=== PATIENT | male | born 1965 | race Caucasian/White ===

== ENCOUNTER 2018-06-18 01:26 | Inpatient (IN) | payer OTHER, SELFPAY ==
[2018-06-18] VITALS (41 sets, daily range): BP systolic 103–162; BP diastolic 58–103; PULSE 47–87; RESP 10–20; TEMP 36.6–36.8; O2SAT 95–99; BMI 24.3; BMI 25.1
--- NOTE | 2018-06-18 01:39 | RAD_ITS ---
STUDY: X-RAY CHEST REASON FOR EXAM: Male, 53 years old. Midsternal chest pain. TECHNIQUE: Single AP portable view of the chest. COMPARISON: None. FINDINGS: The lungs are clear and expanded. There is no demonstrated pleural abnormality. Normal size heart. Normal mediastinum and nino. Normal visualized pulmonary arteries. There is atherosclerotic calcification of the aortic arch with tortuosity. Normal visualized thoracic spine. Normal visualized ribs, clavicles, and shoulders. There is no demonstrated abnormality of the visualized soft tissue structures of the upper abdomen. RAD/Chest 1 View (Portable) IMPRESSION: No evidence for acute cardiopulmonary pathology. Electronically Signed: Daniel Grigsby MD at 1:59 EDT , Service support ,
--- NOTE | 2018-06-18 01:39 | EKG12_ITS ---
Test Reason : CP Blood Pressure : / mmHG Vent. Rate : 061 BPM Atrial Rate : 061 BPM P-R Int : 160 ms QRS Dur : 086 ms QT Int : 396 ms P-R-T Axes : 076 024 042 degrees QTc Int : 398 ms Normal sinus rhythm Cannot rule out Anterior infarct , age undetermined Abnormal ECG Confirmed by AMBAR ORTIZ, ALLYSON ([id number]), department editor CAITLIN PRICE ([id number] on 06/19/2018 11:04:46 AM Referred By: KIMBERLY Confirmed By:ALLYSON VILLALTA MD
[2018-06-18 01:48] LABS: Absolute Neutrophil Count 9.8 X10^3/uL (2.0-7.7); Basophil# 0.06 X10^3/uL; Basophil% 0.5 % (0-1); Eosinophil# 0.18 X10^3/uL; Eosinophils% 1.4 % (0-5); Hematocrit 48.5 % (40-54); Hemoglobin 16.8 g/dl (13.0-16.5); Lymphocyte % 15.8 % (19-41); Mean Corp Hgb Conc 34.6 g/gl (32-36); Mean Corpuscular Hgb 30.8 pg (27.0-32.0); Mean Platelet Vol. 11.6 fl (6.2-12.0); Monocyte# 1.15 X10^3/uL; Monocyte% 8.6 % (0-10); Neutrophil # 9.79 X10^3/uL (2.7-7.7); Neutrophil % 73.5 % (47-70); Platelet Count 206 K/mm3 (150-450); RBC Distribution Width CV 12.9 % (11.6-14.6); RBC Distribution Width SD 42.4 fl (35.1-43.9); Red Blood Count 5.45 M/mm3 (4.6-6.2); White Blood Count 13.3 K/mm3 (4.4-11.0)
[2018-06-18] MEDS: Aspirin 81 MG TAB.CHEW 324 MG PO (01:48)
[2018-06-18] MEDS: Ondansetron 4 MG/2 ML Vial IV (01:50)
[2018-06-18] MEDS: Morphine 4 MG/ML Syringe IV (01:50)
[2018-06-18 01:51] LABS: POSITIVE COUNT NO; POSITIVE DIFFERENTIAL NO; POSITIVE MORPHOLOGY NO
[2018-06-18 01:57] LABS: D-Dimer Quantitative (DVT/PE) 0.32 FEU/ug/m (0.27-0.49)
[2018-06-18 02:22] LABS: Anion Gap 6 (5-15); BUN 9 mg/dL (7-18); BUN/Creat Ratio 9.2 RATIO (10-20); Calcium,Total 8.6 mg/dL (8.5-10.1); Chloride 105 mmol/L (98-107); Creatinine, Serum 0.98 mg/dL (0.70-1.30); EST Glomerular Filtration Rate 84 mL/min (>60); Est Glom Filt Rate - Afr Amer 102 mL/min (>60); Estimated Creatinine Clearance 94.58 ml/min; Glucose 122 mg/dL (74-106); Potassium 4.3 mmol/L (3.5-5.1); Sodium Level 138 mmol/L (136-145)
--- NOTE | 2018-06-18 02:36 | ED.DCSUM_ITS ---
- ER Visit Summary Date of Service: 06/18/18 Chief Complaint: Chest pain chest pain History of Present Illness: The patient is a 53 M presenting with chest pain. Pain is sharp and midsternal with no radiation. He states it started around 6 PM, 7 hours ago. He states pain is 10 out of 10. He denies shortness of breath, nausea, vomiting, diaphoresis. He does not recall anything that makes this better or worse. He does not see a doctor regularly and does not know if he has high blood pressure or high cholesterol. His father had an [place] at age 44. He is a smoker. Denies PE/DVT risk factors. Physical Examination: Vitals are stable. Patient is afebrile. Alert no acute distress. HEENT exam is unremarkable. Neck is supple. Lungs are clear and equal bilaterally. Heart is regular rate and rhythm. Abdomen is soft nontender nondistended. Extremities are unremarkable. Skin is warm and dry. No focal neurologic deficit. Remainder of exam is unremarkable. Emergency Department Course and Treatment: EKG is sinus rate of 61. Chest x-ray shows no acute process. CBC, chemistries show a white count 13.3, glucose 122. D-dimer is negative. Troponin is 3.130. Patient was given aspirin on arrival. He is given morphine and Zofran. Repeat EKG was obtained and is unchanged. Patient's pain is 2/10. He was given sublingual nitro. He is pain free on re- evaluation. Discussed with Dr. Reeder who also reviewed his EKGs. He will b e admitted for cardiac catheterization and given Brilinta and heparin. Discussed with the hospitalist for admission. Disposition: Admission Impression: NSTEMI This note was generated with [employer] dictation software. It may contain incorrect words, spelling, and punctuation that were not noted in review of the chart prior to signing ED Disposition - Plan for ED Patient: Chief Complaint: Chest Pain Referrals: Care Physician,No Primary [Primary Care Provider] -
[2018-06-18] MEDS: TICAGRELOR 90 MG TABLET 180 MG PO (03:28)
[2018-06-18] MEDS: HEPARIN/D5w 25,000 UNITS 25,000 UNITS/250 ML IV.SOLN. 12 UNITS IV (03:29)
[2018-06-18] MEDS: Heparin Injection (Vial) 5,000 UNIT/ML VIAL 6000 UNIT IV (03:29)
[2018-06-18 03:35] LABS: Prothrombin Time (Protime)PT. 13.5 SECONDS (11.7-14.9)
--- NOTE | 2018-06-18 03:55 | PCM.HP.STD ---
Problem List (1) Non-ST elevation KS (NSTEMI) Status: Acute History of Present Illness Date of Admission: 06/18/18 Chief Complaint: Chest pain The patient is a 53 year old previously healthy male M with a history of tobacco abuse and nephrectomy who presented with excruciating constant and persistent substernal nonradiating chest pain that started a few hours before his admission. Associated with symptoms is lightheadedness. He reported that his chest pain decreased with walking. He denies any aggravating factors. He denied any shortness of breath, nausea, vomiting or diaphoresis. Past Medical History Past Medical History (Chronic Problems): Chronic Problems HTN (hypertension) (Chronic) Allergies No Known Allergies Allergy (Verified 06/18/18 01:29) Home Medications: Ambulatory Orders Medication Instructions Recorded NK 06/18/18 Surgical History: - - Nephrectomy as a child. He does not know whether it is left kidney or his right kidney. Smoking Status: Current every day smoker Tobacco Use: Cigarettes Alcohol: None Review of Systems Constitutional: Denies: Chills, Fever, Weight Change HEENT: Denies: Head Aches, Sinus Congestion, Sinus Drainage Cardiovascular: Reports: Chest Pain. Denies: Palpitations Respiratory: Denies: Cough, Shortness of breath at rest, Sputum production Gastrointestinal: Denies: Abdominal Pain, Nausea, Vomiting Genitourinary: Denies: Dysuria Musculoskeletal: Denies: Joint Pain, Joint Tenderness Skin: Denies: Rash, Wounds Neurological: Denies: Numbness, Tingling, Focal weakness Psychiatric: Denies: Anxiety, Depression, Homicidal Ideations, Suicidal Ideations Hematologic/ Lymphatic: Denies: Easy Bruising, Easy Bleeding VTE Information - Inpt Only VTE Present on Admission: No VTE Mechan Device Prophylaxis: None VTE Pharm Prophylaxis ordered?: No Reason prophylaxis not ordered:: Treatment Not Indicated - Patient started on heparin for non-ST elevation KS Patient Problems: Active and Suspected Problems Non-ST elevation KS (NSTEMI) (Acute) - Physical Exam General: Alert, Oriented x3, Cooperative HEENT: Atraumatic, PERRLA, EOMI, Normocephalic Neck: Supple, No JVD, Negative Carotid Bruits Lungs: Clear to auscultation, Normal air movement Cardiovascular: Regular rate, No murmurs Abdomen: Bowel Sounds Present, Soft, Non Tender Extremities: No edema, Capillary Refill Less than 3 Seconds Skin: No rashes, No breakdown Musculoskeletal: No Tenderness to Palpation of Joints or Extremities Neurological: Cranial nerves II-XII grossly intact Psych/Mental Status: Normal Affect, Appropriate Vital Signs Temp Pulse Resp BP Pulse Ox 98.2 F 87 18 128/89 H 96 06/18/18 01:27 06/18/18 03:35 06/18/18 03:35 06/18/18 03:35 06/18/18 03:35 Oxygen Flow Rate (L/min) 2 Oxygen Delivery Method Nasal Cannula Weight: 81.4 kg Body Mass Index (BMI) 24.3 Laboratory Tests Past 24 Hrs 06/18/18 06/18/18 06/18/18 01:40 01:40 01:40 WBC 13.3 H RBC 5.45 Hgb 16.8 H Hct 48.5 MCV 89.0 MCH 30.8 MCHC 34.6 RDW 12.9 RDW Differential 42.4 Plt Count 206 MPV 11.6 Immature Gran % (Auto) 0.200 Neut % (Auto) 73.5 H Lymph % (Auto) 15.8 L [place] % (Auto) 8.6 Eos % (Auto) 1.4 Baso % (Auto) 0.5 Absolute Neuts (auto) 9.8 H Absolute Lymphs (auto) 2.10 Total Counted Not Reportable PT INR D-Dimer Quant (PE/DVT) 0.32 Sodium 138 Potassium 4.3 Chloride 105 Carbon Dioxide 27.0 Anion Gap 6 BUN 9 Creatinine 0.98 Estim Creat Clear Calc 94.58 Est GFR (MDRD) Af Amer 102 Est GFR (MDRD) Non-Af 84 BUN/Creatinine Ratio 9.2 L Glucose 122 H Calcium 8.6 Troponin I 3.130 H* 06/18/18 01:40 WBC RBC Hgb Hct MCV MCH MCHC RDW RDW Differential Plt Count MPV Immature Gran % (Auto) Neut % (Auto) Lymph % (Auto) [place] % (Auto) Eos % (Auto) Baso % (Auto) Absolute Neuts (auto) Absolute Lymphs (auto) Total Counted PT 13.5 INR 1.0 D-Dimer Quant (PE/DVT) Sodium Potassium Chloride Carbon Dioxide Anion Gap BUN Creatinine Estim Creat Clear Calc Est GFR (MDRD) Af Amer Est GFR (MDRD) Non-Af BUN/Creatinine Ratio Glucose Calcium Troponin I Assessment/Plan All Active Problems Non-ST elevation KS (NSTEMI) (Acute) The patient is a 53 year old previously healthy male M with a history of tobacco abuse and nephrectomy who presented with excruciating constant and persistent substernal nonradiating chest pain; lightheadedness and found to have abnormal EKG ; and severely elevated troponin consistent with non-ST elevation KS. Chest pain Admit to a monitored bed on PCU CXR independently reviewed confirms hyperinflation with no acute cardia pulmonary disease. EKG independently reviewed confirms Q waves in the inferior leads and PVCs. Patient received aspirin 324 mg at the ED ASA 81 mg p.o. daily SL NTG 0.4 mg prn as needed for chest pain Serial cardiac enzymes Stat EKG as needed for chest pain Per cardiology recommendations patient was started on heparin drip from the ED and was given Brilinta. Cardiology consulted. We will keep patient n.p.o. Tobacco abuse Counseled Nicotine patch. Inpatient consult smoking cessation. DVT prophylaxis Not indicated in the setting of patient on heparin drip for non-ST elevation KS. Code Visit Inpatient E&M: 57244 Init Hosp L3
--- NOTE | 2018-06-18 04:57 | EKG12_ITS ---
Test Reason : CP REPEAT Blood Pressure : / mmHG Vent. Rate : 083 BPM Atrial Rate : 071 BPM P-R Int : 000 ms QRS Dur : 076 ms QT Int : 358 ms P-R-T Axes : 000 010 033 degrees QTc Int : 420 ms Normal sinus rhythm with Premature atrial complexes Fusion complexes Possible Inferior infarct , age undetermined Abnormal ECG When compared with ECG of 18-JUN-2018 02:37, MANUAL COMPARISON REQUIRED, DATA IS UNCONFIRMED Confirmed by VOLODYMYR ENNIS ([id number]), fashion editor TODD RAND ([id number]) on 06/26/2018 12:43:37 PM Referred By: HERNAN Confirmed By:VOLODYMYR ENNIS
[2018-06-18] MEDS: Atorvastatin Calcium 80 MG Tablet PO (06:30)
[2018-06-18 06:50] LABS: Absolute Lymphocyte Count 3.74 X10^3/ul (0.83-4.51); Absolute Neutrophil Count 10.2 X10^3/uL (2.0-7.7); Basophil# 0.05 X10^3/uL; Basophil% 0.3 % (0-1); Eosinophil# 0.22 X10^3/uL; Eosinophils% 1.4 % (0-5); Hematocrit 49.6 % (40-54); Hemoglobin 16.7 g/dl (13.0-16.5); Lymphocyte # 3.74 X10^3/ul (4.0); Lymphocyte % 24.2 % (19-41); Mean Corp Hgb Conc 33.7 g/gl (32-36); Mean Corpuscular Hgb 30.4 pg (27.0-32.0); Mean Corpuscular Volume 90.2 fL (80-94); Mean Platelet Vol. 12.1 fl (6.2-12.0); Monocyte# 1.18 X10^3/uL; Monocyte% 7.6 % (0-10); Neutrophil # 10.21 X10^3/uL (2.7-7.7); Neutrophil % 66.2 % (47-70); Platelet Count 225 K/mm3 (150-450); RBC Distribution Width SD 42.8 fl (35.1-43.9); White Blood Count 15.4 K/mm3 (4.4-11.0)
[2018-06-18 06:56] LABS: International Normalized Ratio 1.2; Prothrombin Time (Protime)PT. 14.9 SECONDS (11.7-14.9)
[2018-06-18 07:07] LABS: POSITIVE COUNT NO; POSITIVE DIFFERENTIAL NO; POSITIVE MORPHOLOGY NO
--- NOTE | 2018-06-18 07:12 | PCM.CONS.C ---
Problem List (1) Non-ST elevation PR (NSTEMI) Status: Acute (2) HTN (hypertension) Status: Chronic Reason for Consult Date of Consultation: 06/18/18 History of Present Illness: The patient is a 53 year old white male with a past medical history potentially compatible with hypertension who presents for evaluation of chest discomfort compatible with unstable angina pectoris and subsequent objective findings compatible with an acute non-ST segment elevation PR. The patient states the best of his knowledge she has had no cardiovascular history in the past. He notes that yesterday evening he began to experience nonexertional chest discomfort which he described as a somewhat pressure sensation throughout his chest. It did not radiate. He denied nausea, emesis, or diaphoresis. There was no episodes of worsening shortness of breath or dyspnea, near syncope, or syncope. His symptoms waxed and waned. He subsequently presented to the [facility] emergency department for evaluation. He was noted to have an abnormal troponin I level. His ECG demonstrated concerns of sinus rhythm with a possible anterior PR pattern of indeterminate age and a possible inferior PR pattern of indeterminate age. It was repeated with notation of subsequent T wave changes/inversion in the inferior leads. He was treated medically with aspirin and antiplatelet agents and anticoagulants. He was placed in the PCU for further evaluation and care. He states that the moment he is without ongoing chest discomfort. He has had repeat troponin I levels which have increased. He is noted on follow-up ECG to have continued sinus rhythm with findings potentially compatible with an accelerated idioventricular rhythm. His chest x-ray did not appear to demonstrate any acute cardiovascular disease process. Past Medical History Allergies/Adverse Reactions: Allergies No Known Allergies Allergy (Verified 06/18/18 05:03) Home Medications: Ambulatory Orders Medication Instructions Recorded NK 06/18/18 Past Medical History (Chronic Problems): Chronic Problems HTN (hypertension) (Chronic) Surgical History: - - Nephrectomy as a child. He does not know whether it is left kidney or his right kidney. Lives: Alone Smoking Status: Current every day smoker Tobacco Use: Cigarettes Alcohol: None Drugs: None Review of Systems - Review of Systems General: Denies: Fever, Night Sweats, Fatigue Cardiovascular: Reports: Chest Discomfort, Chest Discomfort at Rest. Denies: Shortness of Breath, Orthopnea, PND, Peripheral Edema, Palpitations, Lightheadedness, Dizziness, Near Syncope, Syncope Respiratory: Denies: Cough, Sputum Production, Hemoptysis Gastrointestinal: Denies: Hematemesis, Hematochezia, Melena Genitourinary: Denies: Dysuria, Hematuria Skin: Denies: Rash Subjectve: This is a 53-year-old white male who appears to be resting comfortably at the moment in no acute distress. Objective: Vital Signs Temp Pulse Resp BP Pulse Ox 98.0 F 68 18 106/81 H 99 06/18/18 05:20 06/18/18 07:01 06/18/18 05:20 06/18/18 05:20 06/18/18 05:20 Oxygen Flow Rate (L/min) 2 Oxygen Delivery Method Nasal Cannula Weight: 175 lb 0.752 oz Body Mass Index (BMI) 25.1 Intake and Output for Last 24 Hours 06/16/18 06/17/18 06/18/18 23:59 23:59 23:59 Intake Total 34 / 34 Output Total 175 / 175 Balance -141 / -141 General: Awake, Alert, Oriented x 3, Cooperative, No Acute Distress HEENT: Atraumatic, Normocephalic, PERRL, EOMI, Sclera Non Icteric Oral: Moist Mucosa Neck: Supple, Good ROM Lungs: Clear to auscultation Cardiovascular: Regular Rhythm, Premature Ectopic Beats, Normal S1, Normal S2 Vascular: No Carotid Bruits Abdomen: Bowel Sounds Present, Soft, Non Tender Extremities: No Cyanosis, No Clubbing, No edema Neurological: No Focal Motor or Sensory Deficit Psych/Mental Status: Appropriate, Normal Affect 06/18/18 01:40: WBC 13.3 H, RBC 5.45, Hgb 16.8 H, Hct 48.5, MCV 89.0, MCH 30.8, MCHC 34.6, RDW 12.9, RDW Differential 42.4, Plt Count 206, MPV 11.6, Immature Gran % (Auto) 0.200, Neut % (Auto) 73.5 H, Lymph % (Auto) 15.8 L, [place] % (Auto) 8.6, Eos % (Auto) 1.4, Baso % (Auto) 0.5, Absolute Neuts (auto) 9.8 H, Total Counted Not Reportable 06/18/18 01:40: Sodium 138, Potassium 4.3, Chloride 105, Carbon Dioxide 27.0, Anion Gap 6, BUN 9, Creatinine 0.98, Est GFR (MDRD) Af Amer 102, Est GFR (MDRD) Non-Af 84, BUN/Creatinine Ratio 9.2 L, Glucose 122 H, Calcium 8.6, Troponin I 3.130 H* 06/18/18 01:40: D-Dimer Quant (PE/DVT) 0.32 06/18/18 01:40: PT 13.5, INR 1.0 06/18/18 01:40: APTT 32.0 06/18/18 05:20: PT 14.9, INR 1.2 06/18/18 05:20: WBC 15.4 H, RBC 5.50, Hgb 16.7 H, Hct 49.6, MCV 90.2, MCH 30.4, MCHC 33.7, RDW 13.0, RDW Differential 42.8, Plt Count 225, MPV 12.1 H, Immature Gran % (Auto) 0.300, Neut % (Auto) 66.2, Lymph % (Auto) 24.2, [place] % (Auto) 7.6, Eos % (Auto) 1.4, Baso % (Auto) 0.3, Absolute Neuts (auto) 10.2 H, Total Counted Not Reportable Rhythm: Sinus rhythm EKG: As noted above Chest x-ray: Preliminary report: No acute cardiopulmonary disease process: Please see official report Assessment/Plan 1. Non-ST segment elevation PR The patient presents with signs and symptoms compatible with a non-ST segment elevation PR. He appears to be symptomatically improved at the moment status post medical management with antiplatelet therapy and anticoagulant therapy. At the present time he continues to be monitored. His cardiac enzymes are being followed. His ECG will be followed. It would not be unreasonable to obtain an echocardiogram to evaluate his left ventricular wall motion and systolic function. He is also being recommended for further evaluation with diagnostic cardiac catheterization. The procedure and risks were discussed with him. He was agreeable to this approach. 2. Hypertension The patient may have a history of hypertension-untreated. His blood pressures will need to be followed. He will be treated medically as deemed appropriate. Comment: The above was discussed and reviewed with the patient and previously with the [facility] emergency department staff. This note was generated with [employer] software. It may contain incorrect words, spelling, and punctuation that were not noted in checking the note before signing.
--- NOTE | 2018-06-18 07:18 | CON.PCM_ITS ---
Problem List (1) Non-ST elevation IL (NSTEMI) Status: Acute (2) HTN (hypertension) Status: Chronic Reason for Consult Date of Consultation: 06/18/18 History of Present Illness: The patient is a 53 year old white male with a past medical history potentially compatible with hypertension who presents for evaluation of chest discomfort compatible with unstable angina pectoris and subsequent objective findings com patible with an acute non-ST segment elevation IL. The patient states the best of his knowledge she has had no cardiovascular history in the past. He notes that yesterday evening he began to experience nonexertional chest discomfort which he described as a somewhat pressure sensation throughout his chest. It did not radiate. He denied nausea, emesis, or diaphoresis. There was no episodes of worsening shortness of breath or dyspnea, near syncope, or syncope. His symptoms waxed and waned. He subsequently presented to the [facility] emergency department for evaluation. He was noted to have an abnormal troponin I level. His ECG demonstrated concerns of sinus rhythm with a possible anterior IL pattern of indeterminate age and a possible inferior IL pattern of indeterminate age. It was repeated with notation of subsequent T wave changes/inversion in the inferior leads. He was treated medically with aspirin and antiplatelet agents and anticoagulants. He was placed in the PCU for further evaluation and care. He states that the moment he is without ongoing chest discomfort. He has had repeat troponin I levels which have increased. He is noted on follow-up ECG to have continued sinus rhythm with findings potentially compatible with an accelerated idioventricular rhythm. His chest x-ray did not appear to demonstrate any acute cardiovascular disease process. Past Medical History Allergies/Adverse Reactions: Allergies No Known Allergies Allergy (Verified 06/18/18 05:03) Home Medications: Ambulatory Orders Medication Instructions Recorded NK 06/18/18 Past Medical History (Chronic Problems): Chronic Problems HTN (hypertension) (Chronic) Surgical History: - - Nephrectomy as a child. He does not know whether it is left kidney or his right kidney. Lives: Alone Smoking Status: Current every day smoker Tobacco Use: Cigarettes Alcohol: None Drugs: None Review of Systems - Review of Systems General: Denies: Fever, Night Sweats, Fatigue Cardiovascular: Reports: Chest Discomfort, Chest Discomfort at Rest. Denies: Shortness of Breath, Orthopnea, PND, Peripheral Edema, Palpitations, Lightheadedness, Dizziness, Near Syncope, Syncope Respiratory: Denies: Cough, Sputum Production, Hemoptysis Gastrointestinal: Denies: Hematemesis, Hematochezia, Melena Genitourinary: Denies: Dysuria, Hematuria Skin: Denies: Rash Subjectve: This is a 53-year-old white male who appears to be resting comfortably at the moment in no acute distress. Objective: Vital Signs Temp Pulse Resp BP Pulse Ox 98.0 F 68 18 106/81 H 99 06/18/18 05:20 06/18/18 07:01 06/18/18 05:20 06/18/18 05:20 06/18/18 05:20 Oxygen Flow Rate (L/min) 2 Oxygen Delivery Method Nasal Cannula Weight: 175 lb 0.752 oz Body Mass Index (BMI) 25.1 Intake and Output for Last 24 Hours 06/16/18 06/17/18 06/18/18 23:59 23:59 23:59 Intake Total 34 / 34 Output Total 175 / 175 Balance -141 / -141 General: Awake, Alert, Oriented x 3, Cooperative, No Acute Distress HEENT: Atraumatic, Normocephalic, PERRL, EOMI, Sclera Non Icteric Oral: Moist Mucosa Neck: Supple, Good ROM Lungs: Clear to auscultation Cardiovascular: Regular Rhythm, Premature Ectopic Beats, Normal S1, Normal S2 Vascular: No Carotid Bruits Abdomen: Bowel Sounds Present, Soft, Non Tender Extremities: No Cyanosis, No Clubbing, No edema Neurological: No Focal Motor or Sensory Deficit Psych/Mental Status: Appropriate, Normal Affect 06/18/18 01:40: WBC 13.3 H, RBC 5.45, Hgb 16.8 H, Hct 48.5, MCV 89.0, MCH 30.8, MCHC 34.6, RDW 12.9, RDW Differential 42.4, Plt Count 206, MPV 11.6, Immature Gran % (Auto) 0.200, Neut % (Auto) 73.5 H, Lymph % (Auto) 15.8 L, [place] % (Auto) 8.6, Eos % (Auto) 1.4, Baso % (Auto) 0.5, Absolute Neuts (auto) 9.8 H, Total Counted Not Reportable 06/18/18 01:40: Sodium 138, Potassium 4.3, Chloride 105, Carbon Dioxide 27.0, Anion Gap 6, BUN 9, Creatinine 0.98, Est GFR (MDRD) Af Amer 102, Est GFR (MDRD) Non-Af 84, BUN/Creatinine Ratio 9.2 L, Glucose 122 H, Calcium 8.6, Troponin I 3.130 H* 06/18/18 01:40: D-Dimer Quant (PE/DVT) 0.32 06/18/18 01:40: PT 13.5, INR 1.0 06/18/18 01:40: APTT 32.0 06/18/18 05:20: PT 14.9, INR 1.2 06/18/18 05:20: WBC 15.4 H, RBC 5.50, Hgb 16.7 H, Hct 49.6, MCV 90.2, MCH 30.4, MCHC 33.7, RDW 13.0, RDW Differential 42.8, Plt Count 225, MPV 12.1 H, Immature Gran % (Auto) 0.300, Neut % (Auto) 66.2, Lymph % (Auto) 24.2, [place] % (Auto) 7.6, Eos % (Auto) 1.4, Baso % (Auto) 0.3, Absolute Neuts (auto) 10.2 H, Total Counted Not Reportable Rhythm: Sinus rhythm EKG: As noted above Chest x-ray: Preliminary report: No acute cardiopulmonary disease process: Please see official report Assessment/Plan 1. Non-ST segment elevation IL The patient presents with signs and symptoms compatible with a non-ST segment elevation IL. He appears to be symptomatically improved at the moment status post medical management with antiplatelet therapy and anticoagulant therapy. At the present time he continues to be monitored. His cardiac enzymes are being followed. His ECG will be followed. It would not be unreasonable to obtain an echocardiogram to evaluate his left ventricular wall motion and systolic function. He is also being recommended for further evaluation with diagnostic cardiac catheterization. The procedure and risks were discussed with him. He was agreeable to this approach. 2. Hypertension The patient may have a history of hypertension-untreated. His blood pressures will need to be followed. He will be treated medically as deemed appropriate. Comment: The above was discussed and reviewed with the patient and previously with the [facility] emergency department staff. This note was generated with [employer] software. It may contain incorrect words, spelling, and punctuation that were not noted in checking the note before signing.
--- NOTE | 2018-06-18 07:25 | ECHOD_ITS ---
Reason For Study: S/P OH Procedure This was a 2D Doppler, Color Flow transthoracic echocardiogram. The exam was of adequate technical quality. Exam performed portable in patient room. Left Ventricle Normal LV size. Segmental dysfunction with preserved ejection fraction (see wall motion). The estimated ejection fraction is 55 %. No evidence for diastolic dysfunction. Basal inferoseptal: Hypokinetic. Mid-Posterior: Hypokinetic. Mid-Inferior: Hypokinetic. Mid-inferoseptal : Hypokinetic. Inferior Somers : Hypokinetic. Right Ventricle Normal RV size. Normal systolic function. Atria Normal left atrium. Normal right atrium. No doppler evidence for ASD. Mitral Valve There is no mitral annular calcification. Normal mitral valve. Mild (1+) mitral valve insufficiency. Tricuspid Valve Normal tricuspid valve. Mild tricuspid valve insufficiency. Right ventricular systolic pressure estimated to be 23 mmHg. Aortic Valve Trisinus/trileaflet aortic valve. Normal aortic valve. Trivial aortic valve insufficiency. Pulmonic Valve The pulmonic valve is not well visualized. Trivial pulmonic valve insufficiency. Great Vessels Normal sized aortic root. Pericardium/Pleural No pericardial effusion. MMode/2D Measurements & Calculations LVIDd: 4.6 cm IVSd: 0.80 cm Ao root diam: 3.5 cm LVIDs: 2.6 cm LVPWd: 1.0 cm LA dimension: 3.1 cm RVDd: 3.6 cm FS: 44.2 % LAV(MOD-bp): 19.5 ml LVAd ap4: 35.1 cm2 SV(MOD-sp4): 76.6 ml LAV(MOD-bp) Indexed: 9.9 ml/m2 EDV(MOD-sp4): 110.4 ml LAV(MOD-sp2): 19.4 ml EDV(sp4-el): 112.8 ml LAV(MOD-sp4): 16.3 ml LVAs ap4: 17.4 cm2 ESV(MOD-sp4): 33.8 ml ESV(sp4-el): 33.6 ml EF(MOD-sp4): 69.4 % EF(sp4-el): 70.2 % SV(sp4-el): 79.2 ml LA A4 area: 8.4 cm2 RA A4 area: 15.3 cm2 Time Measurements MV dec time: 0.18 sec Doppler Measurements & Calculations MV E max henrry: 93.2 cm/sec Lat Peak E' Henrry: 10.4 cm/sec Med Peak E' Henrry: 11.4 cm/sec MV A max henrry: 88.5 cm/sec E/E' lat: 9.0 E/E' med: 8.2 MV E/A: 1.1 MV V2 max: 99.2 cm/sec MV P1/2t max henrry: 102.1 cm/sec Ao V2 max: 123.1 cm/sec MV max P.9 mmHg MV P1/2t: 116.0 msec Ao max P.1 mmHg MV V2 mean: 57.9 cm/sec MV dec slope: 257.7 cm/sec2 Ao V2 mean: 84.6 cm/sec MV mean P.6 mmHg MVA(P1/2t): 1.9 cm2 Ao mean P.2 mmHg MV V2 VTI: 32.0 cm Ao V2 VTI: 25.9 cm LV V1 max: 107.9 cm/sec PA V2 max: 81.9 cm/sec TR max henrry: 222.9 cm/sec LV V1 max P.7 mmHg TR max P.9 mmHg LV V1 mean P.3 mmHg LV V1 mean: 70.9 cm/sec LV V1 VTI: 23.1 cm Interpretation Summary Segmental dysfunction with preserved ejection fraction (see wall motion). The estimated ejection fraction is 55 %. Mild (1+) mitral valve insufficiency. Mild tricuspid valve insufficiency. Trivial aortic valve insufficiency. Trivial pulmonic valve insufficiency. Right ventricular systolic pressure estimated to be 23 mmHg. No evidence for diastolic dysfunction. Ordering Physician: Ralph Reeder Referring Physician: NO PCP NOTED Performed By: Branden Palafox RCS
[2018-06-18] MEDS: TICAGRELOR 90 MG TABLET PO ×2 (08:43→21:36)
--- NOTE | 2018-06-18 08:53 | CASEMGMT ---
According to the [employer] website, the following are in-network tertiary facilities: [facility], [facility], [facility], [facility], [facility], [facility], and . Nany ALVARENGA CM
[2018-06-18 08:59] LABS: Anion Gap 7 (5-15); BUN 8 mg/dL (7-18); BUN/Creat Ratio 9.2 RATIO (10-20); Calcium,Total 8.6 mg/dL (8.5-10.1); Chloride 107 mmol/L (98-107); Cholesterol 148 mg/dL (200); Creatinine, Serum 0.87 mg/dL (0.70-1.30); EST Glomerular Filtration Rate 98 mL/min (>60); Est Glom Filt Rate - Afr Amer 118 mL/min (>60); Estimated Creatinine Clearance 100.22 ml/min; Glucose 88 mg/dL (74-106); High Density Lipoprotein 38 mg/dL; Potassium 4.1 mmol/L (3.5-5.1); Sodium Level 140 mmol/L (136-145); Triglycerides 95 mg/dL; Very Low Density Lipoprotein 19 mg/dL (5-40)
--- NOTE | 2018-06-18 10:29 | NURSING ---
called report to Gregoria LEATHER PRODUCTION MACHINE OPERATOR. Pt to go to ICU post PCI
--- NOTE | 2018-06-18 10:34 | CL.I_ITS ---
Patient Name: HENRY ESCOBEDO Study Date: 06/18/2018 Performing: Robin Minaya MD Ht: 70.07 inches 178 cm : 1965 Wt: 174.17 lbs 79 kg Age: 53 Gender: male BSA: 1.97 PROCEDURE(S) PERFORMED QN05-XCT W OR WO PTCA, SINGLE CORONARY ARTERY CLINICAL PROFILE AND CO-MORBIDITIES Indications: ACS <= 24 hrs, Worsening Angina, Suspected CAD, Cardiac Arrythmia, LV Dysfunction Heart Failure: NYHA Class: 1, Newly Diagnosed: Yes, Heart Failure Type: Systolic Stress/Imaging Stress/Image Study Performed: No Angina Classification Anginal Classification w/in 2 Weeks: CCS IV CAD Presentations: Non-STEMI. Symptom onset Date/Time: 06/18/2018 Time Not Available Comorbidities/Risk Factors: Hypertension Dyslipidemia CONCLUSIONS Successful PTCA/DEB mid PDA with a 2.25 x 12 Promus Synergy, 85%-->0%, no dissection. RECOMMENDATIONS Highly recommend quitting all tobacco products Follow up with primary processes chemical design engineer Risk factor modification ASA Indefinitley Plavix for at least 12 months Routine post interventional care Refer for Outpatient Cardiac Rehab Manual sheath removal per protocol Follow up with Dr. Reeder Manual sheath removal once ACT<170, pt too thin for Mynx. DESCRIPTION OF PROCEDURE The patient arrived to the procedure lab. The risks and benefits of the procedure as well as a full d escription of our services here and current unavailability of surgical backup were fully explained to the patient and/or their significant other prior to the catheterization. The Timeout was completed, verifying the correct patient and procedure. The patient's procedural site was prepped and draped in the usual fashion. Local anesthetic was given subcutaneously to right groin region with Lidocaine 2% Using a modified Seldinger technique,arterial access was obtained via the right femoral artery, a 4Fr sheath was inserted Left Coronary Artery selective angiography was performed in multiple views using a 4 Fr. JL5 catheter. Left Coronary Artery selective angiography was performed in multiple views usi ng a 4 Fr. AL 1 catheter. Right Coronary Artery selective angiography was then performed in multiple views using a 4 Fr. 3DRC catheter. Left Ventriculography was performed in KAY projection using a 4 Fr . Pigtail catheter. LV to AO pullback pressures were then recorded.The images were reviewed and optio ns discussed. A decision was then made to proceed with an Intervention, IVUS or other adjunct procedu re. Arterial sheath was exchanged for a 6 Fr Sheath. HSII Guide catheter was inserted and engaged into th e RCA. BMW Guide wire was advanced to the Right PDA. Emerge 2.00x8 Balloon catheter was inserted. PTC A balloon inflated at 6 atms for 8 secs. PTCA balloon inflated at 8 atms for 10 secs. Angiogram perfo rmed post balloon dilatation. Synergy 2.25x12 Balloon catheter was inserted. Angiogram performed post stent deployment. The arterial sheath was sutured in place and capped INTERVENTION INFORMATION LESION SITE: RT PDA (Mid) Lesion Complexity: Non-High/Non-C, lesion at bifurcation: No, thrombus present: No, culprit lesion: Y es Pre Stenosis: 85 % Pre intervention ELVIRA flow: 3 PROCEDURE: Drug Eluting Stent with pre dilatation. Post Stenosis: 0 % Post intervention ELVIRA flow: 3 COMPLICATIONS No Complications PROCEDURE MEDICATIONS Versed 1 mg IV Oxygen: 2 L/min via nasal cannula Heparin 6000 unit(s) IV 06/18/2018 10:09:25 Nitro 200 mcg IC 06/18/2018 10:10:30 Nitro 200 mcg IC 06/18/2018 10:10:30 IV Bolus: .9 NaCl 400 ml total 06/18/2018 10:07:31 IV Fluids: .9 NaCl IV started @ 100 ml/hr 06/18/2018 10:04:10 SUMMARY OF HEMODYNAMIC DATA Time AIR REST ECG 09:16:35 ECG 09:22:09 ECG 09:22:29 AO 86/72 (80) SA 09:36:09 LV 129/-1, 23 09:52:58 LV 128/-2, 19 09:53:05 LV 126/4, 22 09:54:09 LVp 130/4, 20 09:54:41 AOp 130/71 (96) 09:54:46 AO 130/71 (95) 09:56:35 Signed By Robin Minaya MD On 06/18/2018 10:33:29 Robin Minaya MD
[2018-06-18 10:36] LABS: ACT Activated Clotting Time 224 sec (74-137)
--- NOTE | 2018-06-18 10:43 | EKG12_ITS ---
Test Reason : REPEAT Blood Pressure : / mmHG Vent. Rate : 052 BPM Atrial Rate : 052 BPM P-R Int : 164 ms QRS Dur : 092 ms QT Int : 422 ms P-R-T Axes : 070 003 031 degrees QTc Int : 392 ms Sinus bradycardia Possible Inferior infarct , age undetermined Cannot rule out Anterior infarct , age undetermined Abnormal ECG Reconfirmed by AMBAR ORTIZ, ALLYSON ([id number]), photographic editor CAITLIN PRICE ([id number]) on 06/19/2018 11:05:55 AM Referred By: KIMBERLY Confirmed By:ALLYSON VILLALTA MD
[2018-06-18] MEDS: 0.9% Normal Saline 1,000 ML 150 ML IV (11:08)
--- NOTE | 2018-06-18 13:02 | CASEMGMT ---
RN CM Assesmment- intro role of CM to patient. Pt is alert, and able to participate in RN CM assessment. Presented to ER with NSTEMI, for heart cath with PCI. Pt states he is independent, drives, no dc needs. -Brilinta savings card given and explained to patient. PCP: none. List of PCP's given to pt. Specialists: will f/u with cardiology on dc. Preferred [facility]acy[facility] [place] Insurance: [employer] Prescription Benefit:? Yes Transportation: drives DME/HHC: none ? Plan: DC Home.
[2018-06-18 13:05] LABS: ACT Activated Clotting Time 142 sec (74-137)
--- NOTE | 2018-06-18 13:25 | PCM.PROGNOTE ---
<Fermin Thomas - Last Filed: 06/18/18 13:25> Patient Problems: Active and Suspected Problems Non-ST elevation [place] (NSTEMI) (Acute) Subjective: Pt seen and examined post cath/stent. Had mid PDA stent placed this AM with Dr. Minaya. Currently no complaints - no CP/tightness/heaviness/palp/SOB/LH/nausea. - Physical Exam General: Alert, Oriented x3, Cooperative HEENT: Atraumatic, PERRLA, EOMI, Normocephalic Neck: Supple, No JVD, Negative Carotid Bruits Lungs: Clear to auscultation, Normal air movement Cardiovascular: Regular rate, No murmurs Abdomen: Bowel Sounds Present, Soft, Non Tender Extremities: No edema, Capillary Refill Less than 3 Seconds Skin: No rashes, No breakdown Musculoskeletal: No Tenderness to Palpation of Joints or Extremities Neurological: Cranial nerves II-XII grossly intact Psych/Mental Status: Normal Affect, Appropriate, Alert and oriented to time, place, person, mood and affect Vital Signs Temp Pulse Resp BP Pulse Ox 98.0 F 51 L 10 L 109/82 H 98 06/18/18 12:00 06/18/18 12:30 06/18/18 12:30 06/18/18 12:30 06/18/18 12:30 Oxygen Flow Rate (L/min) 2 Oxygen Delivery Method Room Air Weight: 175 lb 0.752 oz Body Mass Index (BMI) 25.1 Intake and Output for Last 24 Hours 06/16/18 06/17/18 06/18/18 23:59 23:59 23:59 Intake Total 153 / 153 Output Total 350 / 350 Balance -197 / -197 Laboratory Tests Past 24 Hrs 06/18/18 06/18/18 06/18/18 01:40 01:40 01:40 WBC 13.3 H RBC 5.45 Hgb 16.8 H Hct 48.5 MCV 89.0 MCH 30.8 MCHC 34.6 RDW 12.9 RDW Differential 42.4 Plt Count 206 MPV 11.6 Immature Gran % (Auto) 0.200 Neut % (Auto) 73.5 H Lymph % (Auto) 15.8 L [place] % (Auto) 8.6 Eos % (Auto) 1.4 Baso % (Auto) 0.5 Absolute Neuts (auto) 9.8 H Absolute Lymphs (auto) 2.10 Total Counted Not Reportable PT INR APTT Activated Clotting Time D-Dimer Quant (PE/DVT) 0.32 Sodium 138 Potassium 4.3 Chloride 105 Carbon Dioxide 27.0 Anion Gap 6 BUN 9 Creatinine 0.98 Estim Creat Clear Calc 94.58 Est GFR (MDRD) Af Amer 102 Est GFR (MDRD) Non-Af 84 BUN/Creatinine Ratio 9.2 L Glucose 122 H Calcium 8.6 Troponin I 3.130 H* Triglycerides Cholesterol LDL Cholesterol VLDL Cholesterol HDL Cholesterol 06/18/18 06/18/18 06/18/18 01:40 01:40 05:20 WBC RBC Hgb Hct MCV MCH MCHC RDW RDW Differential Plt Count MPV Immature Gran % (Auto) Neut % (Auto) Lymph % (Auto) [place] % (Auto) Eos % (Auto) Baso % (Auto) Absolute Neuts (auto) Absolute Lymphs (auto) Total Counted PT 13.5 INR 1.0 APTT 32.0 Activated Clotting Time D-Dimer Quant (PE/DVT) Sodium Potassium Chloride Carbon Dioxide Anion Gap BUN Creatinine Estim Creat Clear Calc Est GFR (MDRD) Af Amer Est GFR (MDRD) Non-Af BUN/Creatinine Ratio Glucose Calcium Troponin I 13.500 H* Triglycerides Cholesterol LDL Cholesterol VLDL Cholesterol HDL Cholesterol 06/18/18 06/18/18 06/18/18 05:20 05:20 05:20 WBC 15.4 H RBC 5.50 Hgb 16.7 H Hct 49.6 MCV 90.2 MCH 30.4 MCHC 33.7 RDW 13.0 RDW Differential 42.8 Plt Count 225 MPV 12.1 H Immature Gran % (Auto) 0.300 Neut % (Auto) 66.2 Lymph % (Auto) 24.2 [place] % (Auto) 7.6 Eos % (Auto) 1.4 Baso % (Auto) 0.3 Absolute Neuts (auto) 10.2 H Absolute Lymphs (auto) 3.74 Total Counted Not Reportable PT 14.9 INR 1.2 APTT Pending Activated Clotting Time D-Dimer Quant (PE/DVT) Sodium Potassium Chloride Carbon Dioxide Anion Gap BUN Creatinine Estim Creat Clear Calc Est GFR (MDRD) Af Amer Est GFR (MDRD) Non-Af BUN/Creatinine Ratio Glucose Calcium Troponin I Triglycerides Cholesterol LDL Cholesterol VLDL Cholesterol HDL Cholesterol 06/18/18 06/18/18 06/18/18 08:05 10:23 12:53 WBC RBC Hgb Hct MCV MCH MCHC RDW RDW Differential Plt Count MPV Immature Gran % (Auto) Neut % (Auto) Lymph % (Auto) [place] % (Auto) Eos % (Auto) Baso % (Auto) Absolute Neuts (auto) Absolute Lymphs (auto) Total Counted PT INR APTT Activated Clotting Time 224 H 142 H D-Dimer Quant (PE/DVT) Sodium 140 Potassium 4.1 Chloride 107 Carbon Dioxide 26.0 Anion Gap 7 BUN 8 Creatinine 0.87 Estim Creat Clear Calc 100.22 Est GFR (MDRD) Af Amer 118 Est GFR (MDRD) Non-Af 98 BUN/Creatinine Ratio 9.2 L Glucose 88 Calcium 8.6 Troponin I 20.600 H* Triglycerides 95 Cholesterol 148 LDL Cholesterol 91 VLDL Cholesterol 19 HDL Cholesterol 38 L Medical Necessity - Tobacco Use Smoking Status: Current every day smoker Tobacco Use: Cigarettes Assessment/Plan All Active Problems Non-ST elevation [place] (NSTEMI) (Acute) 1. NSTEMI/CAD - s/p 1 stent. aspirin, statin, lopressor, brilinta, fannie-i. Asymptomatic post cath. EF 55%, segmental dysfunction, RVSP 23 on echo. 2. Nicotine abuse - patch DVT ppx: held for cath DC planning: likely home tomorrow. This patient was seen by Fermin Thomas PA-C under the supervision of Dr. Noe <Rupert Noe F - Last Filed: 06/18/18 16:23> - Physical Exam Vital Signs Temp Pulse Resp BP Pulse Ox 98.0 F 51 L 11 L 118/77 97 06/18/18 12:00 06/18/18 15:30 06/18/18 15:30 06/18/18 15:30 06/18/18 15:30 Oxygen Flow Rate (L/min) 2 Oxygen Delivery Method Room Air Weight: 175 lb 0.752 oz Body Mass Index (BMI) 25.1 Intake and Output for Last 24 Hours 06/16/18 06/17/18 06/18/18 23:59 23:59 23:59 Intake Total 153 / 153 Output Total 350 / 350 Balance -197 / -197 Laboratory Tests Past 24 Hrs 06/18/18 06/18/18 06/18/18 01:40 01:40 01:40 WBC 13.3 H RBC 5.45 Hgb 16.8 H Hct 48.5 MCV 89.0 MCH 30.8 MCHC 34.6 RDW 12.9 RDW Differential 42.4 Plt Count 206 MPV 11.6 Immature Gran % (Auto) 0.200 Neut % (Auto) 73.5 H Lymph % (Auto) 15.8 L [place] % (Auto) 8.6 Eos % (Auto) 1.4 Baso % (Auto) 0.5 Absolute Neuts (auto) 9.8 H Absolute Lymphs (auto) 2.10 Total Counted Not Reportable PT INR APTT Activated Clotting Time D-Dimer Quant (PE/DVT) 0.32 Sodium 138 Potassium 4.3 Chloride 105 Carbon Dioxide 27.0 Anion Gap 6 BUN 9 Creatinine 0.98 Estim Creat Clear Calc 94.58 Est GFR (MDRD) Af Amer 102 Est GFR (MDRD) Non-Af 84 BUN/Creatinine Ratio 9.2 L Glucose 122 H Calcium 8.6 Troponin I 3.130 H* Triglycerides Cholesterol LDL Cholesterol VLDL Cholesterol HDL Cholesterol 06/18/18 06/18/18 06/18/18 01:40 01:40 05:20 WBC RBC Hgb Hct MCV MCH MCHC RDW RDW Differential Plt Count MPV Immature Gran % (Auto) Neut % (Auto) Lymph % (Auto) [place] % (Auto) Eos % (Auto) Baso % (Auto) Absolute Neuts (auto) Absolute Lymphs (auto) Total Counted PT 13.5 INR 1.0 APTT 32.0 Activated Clotting Time D-Dimer Quant (PE/DVT) Sodium Potassium Chloride Carbon Dioxide Anion Gap BUN Creatinine Estim Creat Clear Calc Est GFR (MDRD) Af Amer Est GFR (MDRD) Non-Af BUN/Creatinine Ratio Glucose Calcium Troponin I 13.500 H* Triglycerides Cholesterol LDL Cholesterol VLDL Cholesterol HDL Cholesterol 06/18/18 06/18/18 06/18/18 05:20 05:20 08:05 WBC 15.4 H RBC 5.50 Hgb 16.7 H Hct 49.6 MCV 90.2 MCH 30.4 MCHC 33.7 RDW 13.0 RDW Differential 42.8 Plt Count 225 MPV 12.1 H Immature Gran % (Auto) 0.300 Neut % (Auto) 66.2 Lymph % (Auto) 24.2 [place] % (Auto) 7.6 Eos % (Auto) 1.4 Baso % (Auto) 0.3 Absolute Neuts (auto) 10.2 H Absolute Lymphs (auto) 3.74 Total Counted Not Reportable PT 14.9 INR 1.2 APTT Activated Clotting Time D-Dimer Quant (PE/DVT) Sodium 140 Potassium 4.1 Chloride 107 Carbon Dioxide 26.0 Anion Gap 7 BUN 8 Creatinine 0.87 Estim Creat Clear Calc 100.22 Est GFR (MDRD) Af Amer 118 Est GFR (MDRD) Non-Af 98 BUN/Creatinine Ratio 9.2 L Glucose 88 Calcium 8.6 Troponin I 20.600 H* Triglycerides 95 Cholesterol 148 LDL Cholesterol 91 VLDL Cholesterol 19 HDL Cholesterol 38 L 06/18/18 06/18/18 06/18/18 09:29 10:23 12:53 WBC RBC Hgb Hct MCV MCH MCHC RDW RDW Differential Plt Count MPV Immature Gran % (Auto) Neut % (Auto) Lymph % (Auto) [place] % (Auto) Eos % (Auto) Baso % (Auto) Absolute Neuts (auto) Absolute Lymphs (auto) Total Counted PT INR APTT Cancelled Activated Clotting Time 224 H 142 H D-Dimer Quant (PE/DVT) Sodium Potassium Chloride Carbon Dioxide Anion Gap BUN Creatinine Estim Creat Clear Calc Est GFR (MDRD) Af Amer Est GFR (MDRD) Non-Af BUN/Creatinine Ratio Glucose Calcium Troponin I Triglycerides Cholesterol LDL Cholesterol VLDL Cholesterol HDL Cholesterol Code Visit Addendum: Dr. Noe I personally examined the patient and reviewed the chart. I agree with the above. 53-year-old male with past medical history consistent consistent with hypertension presenting with chest pain. On admission patient was found to have a climbing troponin with a peak of 20.6, and EKG changes with T wave inversions in the inferior leads. He was taken for cath and had a stent placed and was transferred to the CVICU. If stable tomorrow we will plan for discharge on dual antiplatelet therapy for 1 year. Inpatient E&M: 62683 Subs Hosp L2
--- NOTE | 2018-06-18 13:31 | PN_ITS ---
<Fermin Thomas - Last Filed: 06/18/18 13:25> Patient Problems: Active and Suspected Problems Non-ST elevation NC (NSTEMI) (Acute) Subjective: Pt seen and examined post cath/stent. Had mid PDA stent placed this AM with Dr. Minaya. Currently no complaints - no CP/tightness/heaviness/palp/SOB/LH/nausea. - Physical Exam General: Alert, Oriented x3, Cooperative HEENT: Atraumatic, PERRLA, EOMI, Normocephalic Neck: Supple, No JVD, Negative Carotid Bruits Lungs: Clear to auscultation, Normal air movement Cardiovascular: Regular rate, No murmurs Abdomen: Bowel Sounds Present, Soft, Non Tender Extremities: No edema, Capillary Refill Less than 3 Seconds Skin: No rashes, No breakdown Musculoskeletal: No Tenderness to Palpation of Joints or Extremities Neurological: Cranial nerves II-XII grossly intact Psych/Mental Status: Normal Affect, Appropriate, Alert and oriented to time, place, person, mood and affect Vital Signs Temp Pulse Resp BP Pulse Ox 98.0 F 51 L 10 L 109/82 H 98 06/18/18 12:00 06/18/18 12:30 06/18/18 12:30 06/18/18 12:30 06/18/18 12:30 Oxygen Flow Rate (L/min) 2 Oxygen Delivery Method Room Air Weight: 175 lb 0.752 oz Body Mass Index (BMI) 25.1 Intake and Output for Last 24 Hours 06/16/18 06/17/18 06/18/18 23:59 23:59 23:59 Intake Total 153 / 153 Output Total 350 / 350 Balance -197 / -197 Laboratory Tests Past 24 Hrs 06/18/18 06/18/18 06/18/18 01:40 01:40 01:40 WBC 13.3 H RBC 5.45 Hgb 16.8 H Hct 48.5 MCV 89.0 MCH 30.8 MCHC 34.6 RDW 12.9 RDW Differential 42.4 Plt Count 206 MPV 11.6 Immature Gran % (Auto) 0.200 Neut % (Auto) 73.5 H Lymph % (Auto) 15.8 L Hardin % (Auto) 8.6 Eos % (Auto) 1.4 Baso % (Auto) 0.5 Absolute Neuts (auto) 9.8 H Absolute Lymphs (auto) 2.10 Total Counted Not Reportable PT INR APTT Activated Clotting Time D-Dimer Quant (PE/DVT) 0.32 Sodium 138 Potassium 4.3 Chloride 105 Carbon Dioxide 27.0 Anion Gap 6 BUN 9 Creatinine 0.98 Estim Creat Clear Calc 94.58 Est GFR (MDRD) Af Amer 102 Est GFR (MDRD) Non-Af 84 BUN/Creatinine Ratio 9.2 L Glucose 122 H Calcium 8.6 Troponin I 3.130 H* Triglycerides Cholesterol LDL Cholesterol VLDL Cholesterol HDL Cholesterol 06/18/18 06/18/18 06/18/18 01:40 01:40 05:20 WBC RBC Hgb Hct MCV MCH MCHC RDW RDW Differential Plt Count MPV Immature Gran % (Auto) Neut % (Auto) Lymph % (Auto) Hardin % (Auto) Eos % (Auto) Baso % (Auto) Absolute Neuts (auto) Absolute Lymphs (auto) Total Counted PT 13.5 INR 1.0 APTT 32.0 Activated Clotting Time D-Dimer Quant (PE/DVT) Sodium Potassium Chloride Carbon Dioxide Anion Gap BUN Creatinine Estim Creat Clear Calc Est GFR (MDRD) Af Amer Est GFR (MDRD) Non-Af BUN/Creatinine Ratio Glucose Calcium Troponin I 13.500 H* Triglycerides Cholesterol LDL Cholesterol VLDL Cholesterol HDL Cholesterol 06/18/18 06/18/18 06/18/18 05:20 05:20 05:20 WBC 15.4 H RBC 5.50 Hgb 16.7 H Hct 49.6 MCV 90.2 MCH 30.4 MCHC 33.7 RDW 13.0 RDW Differential 42.8 Plt Count 225 MPV 12.1 H Immature Gran % (Auto) 0.300 Neut % (Auto) 66.2 Lymph % (Auto) 24.2 Hardin % (Auto) 7.6 Eos % (Auto) 1.4 Baso % (Auto) 0.3 Absolute Neuts (auto) 10.2 H Absolute Lymphs (auto) 3.74 Total Counted Not Reportable PT 14.9 INR 1.2 APTT Pending Activated Clotting Time D-Dimer Quant (PE/DVT) Sodium Potassium Chloride Carbon Dioxide Anion Gap BUN Creatinine Estim Creat Clear Calc Est GFR (MDRD) Af Amer Est GFR (MDRD) Non-Af BUN/Creatinine Ratio Glucose Calcium Troponin I Triglycerides Cholesterol LDL Cholesterol VLDL Cholesterol HDL Cholesterol 06/18/18 06/18/18 06/18/18 08:05 10:23 12:53 WBC RBC Hgb Hct MCV MCH MCHC RDW RDW Differential Plt Count MPV Immature Gran % (Auto) Neut % (Auto) Lymph % (Auto) Hardin % (Auto) Eos % (Auto) Baso % (Auto) Absolute Neuts (auto) Absolute Lymphs (auto) Total Counted PT INR APTT Activated Clotting Time 224 H 142 H D-Dimer Quant (PE/DVT) Sodium 140 Potassium 4.1 Chloride 107 Carbon Dioxide 26.0 Anion Gap 7 BUN 8 Creatinine 0.87 Estim Creat Clear Calc 100.22 Est GFR (MDRD) Af Amer 118 Est GFR (MDRD) Non-Af 98 BUN/Creatinine Ratio 9.2 L Glucose 88 Calcium 8.6 Troponin I 20.600 H* Triglycerides 95 Cholesterol 148 LDL Cholesterol 91 VLDL Cholesterol 19 HDL Cholesterol 38 L Medical Necessity - Tobacco Use Smoking Status: Current every day smoker Tobacco Use: Cigarettes Assessment/Plan All Active Problems Non-ST elevation NC (NSTEMI) (Acute) 1. NSTEMI/CAD - s/p 1 stent. aspirin, statin, lopressor, brilinta, fannie-i. Asymptomatic post cath. EF 55%, segmental dysfunction, RVSP 23 on echo. 2. Nicotine abuse - patch DVT ppx: held for cath DC planning: likely home tomorrow. This patient was seen by Fermin Thomas PA-C under the supervision of Dr. oNe <Rupert Noe F - Last Filed: 06/18/18 16:23> - Physical Exam Vital Signs Temp Pulse Resp BP Pulse Ox 98.0 F 51 L 11 L 118/77 97 06/18/18 12:00 06/18/18 15:30 06/18/18 15:30 06/18/18 15:30 06/18/18 15:30 Oxygen Flow Rate (L/min) 2 Oxygen Delivery Method Room Air Weight: 175 lb 0.752 oz Body Mass Index (BMI) 25.1 Intake and Output for Last 24 Hours 06/16/18 06/17/18 06/18/18 23:59 23:59 23:59 Intake Total 153 / 153 Output Total 350 / 350 Balance -197 / -197 Laboratory Tests Past 24 Hrs 06/18/18 06/18/18 06/18/18 01:40 01:40 01:40 WBC 13.3 H RBC 5.45 Hgb 16.8 H Hct 48.5 MCV 89.0 MCH 30.8 MCHC 34.6 RDW 12.9 RDW Differential 42.4 Plt Count 206 MPV 11.6 Immature Gran % (Auto) 0.200 Neut % (Auto) 73.5 H Lymph % (Auto) 15.8 L Hardin % (Auto) 8.6 Eos % (Auto) 1.4 Baso % (Auto) 0.5 Absolute Neuts (auto) 9.8 H Absolute Lymphs (auto) 2.10 Total Counted Not Reportable PT INR APTT Activated Clotting Time D-Dimer Quant (PE/DVT) 0.32 Sodium 138 Potassium 4.3 Chloride 105 Carbon Dioxide 27.0 Anion Gap 6 BUN 9 Creatinine 0.98 Estim Creat Clear Calc 94.58 Est GFR (MDRD) Af Amer 102 Est GFR (MDRD) Non-Af 84 BUN/Creatinine Ratio 9.2 L Glucose 122 H Calcium 8.6 Troponin I 3.130 H* Triglycerides Cholesterol LDL Cholesterol VLDL Cholesterol HDL Cholesterol 06/18/18 06/18/18 06/18/18 01:40 01:40 05:20 WBC RBC Hgb Hct MCV MCH MCHC RDW RDW Differential Plt Count MPV Immature Gran % (Auto) Neut % (Auto) Lymph % (Auto) Hardin % (Auto) Eos % (Auto) Baso % (Auto) Absolute Neuts (auto) Absolute Lymphs (auto) Total Counted PT 13.5 INR 1.0 APTT 32.0 Activated Clotting Time D-Dimer Quant (PE/DVT) Sodium Potassium Chloride Carbon Dioxide Anion Gap BUN Creatinine Estim Creat Clear Calc Est GFR (MDRD) Af Amer Est GFR (MDRD) Non-Af BUN/Creatinine Ratio Glucose Calcium Troponin I 13.500 H* Triglycerides Cholesterol LDL Cholesterol VLDL Cholesterol HDL Cholesterol 06/18/18 06/18/18 06/18/18 05:20 05:20 08:05 WBC 15.4 H RBC 5.50 Hgb 16.7 H Hct 49.6 MCV 90.2 MCH 30.4 MCHC 33.7 RDW 13.0 RDW Differential 42.8 Plt Count 225 MPV 12.1 H Immature Gran % (Auto) 0.300 Neut % (Auto) 66.2 Lymph % (Auto) 24.2 Hardin % (Auto) 7.6 Eos % (Auto) 1.4 Baso % (Auto) 0.3 Absolute Neuts (auto) 10.2 H Absolute Lymphs (auto) 3.74 Total Counted Not Reportable PT 14.9 INR 1.2 APTT Activated Clotting Time D-Dimer Quant (PE/DVT) Sodium 140 Potassium 4.1 Chloride 107 Carbon Dioxide 26.0 Anion Gap 7 BUN 8 Creatinine 0.87 Estim Creat Clear Calc 100.22 Est GFR (MDRD) Af Amer 118 Est GFR (MDRD) Non-Af 98 BUN/Creatinine Ratio 9.2 L Glucose 88 Calcium 8.6 Troponin I 20.600 H* Triglycerides 95 Cholesterol 148 LDL Cholesterol 91 VLDL Cholesterol 19 HDL Cholesterol 38 L 06/18/18 06/18/18 06/18/18 09:29 10:23 12:53 WBC RBC Hgb Hct MCV MCH MCHC RDW RDW Differential Plt Count MPV Immature Gran % (Auto) Neut % (Auto) Lymph % (Auto) Hardin % (Auto) Eos % (Auto) Baso % (Auto) Absolute Neuts (auto) Absolute Lymphs (auto) Total Counted PT INR APTT Cancelled Activated Clotting Time 224 H 142 H D-Dimer Quant (PE/DVT) Sodium Potassium Chloride Carbon Dioxide Anion Gap BUN Creatinine Estim Creat Clear Calc Est GFR (MDRD) Af Amer Est GFR (MDRD) Non-Af BUN/Creatinine Ratio Glucose Calcium Troponin I Triglycerides Cholesterol LDL Cholesterol VLDL Cholesterol HDL Cholesterol Code Visit Addendum: Dr. Noe I personally examined the patient and reviewed the chart. I agree with the above. 53-year-old male with past medical history consistent consistent with hypertension presenting with chest pain. On admission patient was found to have a climbing troponin with a peak of 20.6, and EKG changes with T wave inversions in the inferior leads. He was taken for cath and had a stent placed and was transferred to the CVICU. If stable tomorrow we will plan for discharge on dual antiplatelet therapy for 1 year. Inpatient E&M: 64087 Subs Hosp L2
--- NOTE | 2018-06-18 14:52 | CRPHASE1 ---
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 Risk Factors/Lifestyle Smoking Status: Current some day smoker Hx Hypertension: Yes Hx Diabetes Mellitus Type 1: No Hx Diabetes Mellitus Type 2: No Hx Metabolic Disorders: Yes Hx Dyslipidemia: Yes Hx Obesity: No Height: 5 ft 10 in - BMI 25.1 Stress: Home/Family Risk Factor for Sedentary Lifestyle: Moderate Risk Laboratory Values: Cardiac Rehab Phase I Labs Triglycerides 95 mg/dL (-199) 06/18/18 08:05 Cholesterol 148 mg/dL (200) 06/18/18 08:05 LDL Cholesterol 91 mg/dL (0-130) 06/18/18 08:05 HDL Cholesterol 38 mg/dL (40-) L 06/18/18 08:05 Phase I Education Given On:: [place], Antiplatelet medication, Smoking cessation Issues Affecting Care:: None Knowledge of Condition:: Yes Learning Preferences: Verbal, Written Hospital Course Presenting Symptoms:: NSTEMI Medical/Surgical History AL:: Yes - NSTEMI CAD:: No Diabetes:: No Hypertension:: Yes Dyslipidemia:: Yes Discharge/Home/Social Eval Discharge Disposition: Home
--- NOTE | 2018-06-18 14:54 | CRPH1.INSTRU ---
General Education CAD and cardiac anatomy and function:: Patient communicates acknowledgment Explanation of diagnoses and procedures:: Patient communicates acknowledgment Sign/Symptoms of MS:: Patient communicates acknowledgment Antiplatelet therapy: Patient communicates acknowledgment Proper use of NTG-SL: Not instructed Emergency procedures and activation of EMS: Patient communicates acknowledgment Compliance of all prescribed medications: Patient communicates acknowledgment Smoking Patient Nicotine/Smoking Risk Factors Are:: Cigarettes Recommendations Include:: Smoking cessation strategies/Smoking packet, Participation in a smoking cessation program, Previous smoker; encourage continued cessation Nicotine/Smoking Response Code:: Patient communicates acknowledgment Dyslipidemia Patient Dyslipidemia Risk Factors Are:: HDL, LDL Recommendations Include:: Lipid profile provided, Reviewed NCEP/ATP guidelines, Therapeutic Lifestyle Change dietary guidelines Dyslipidemia Response Code:: Patient communicates acknowledgment Overweight/Obesity Patient Overweight/Obesity Risk Factors Are:: BMI Normal [18-25 & < 65 years old] Recommendations Include:: Exercise 5-7 times/week Overweight/Obesity:: Patient communicates acknowledgment Hypertension Recommendations Include:: Maintain BP <130/85, DASH dietary guidelines, Decrease/maintain normal body weight, Moderation of ETOH Hypertension:: Patient communicates acknowledgment Diabetes Patient Diabetes Risk Factors Are:: No documented hx of diabetes Metabolic Syndrome Patient Metabolic Syndrome Risk Factors Are [3 of 5]:: Fasting blood sugar > 100 mg/dL, Hypertension, Low HDL <40 [male] or < 50 [female] Recommendations Include:: Reinforce compliance to risk factor modifications, Encouraged follow-up with Primary Care Physician Metabolic Syndrome Response Code:: Patient communicates acknowledgment Sedentary Patient Sedentary Risk Factors Are:: Lack of regular exercise Recommendations Include:: Aerobic exercise 5-7 times/week for 20-30 minutes continuously, Benefits of regular exercise, Discussed home walking program, Monitored Outpatient Cardiac Rehab Sedentary Response Code:: Patient communicates acknowledgment Stress Recommendations Include:: Identification of stressors, and assessment of coping skills, Stress management techniques Stress Response Code:: Patient communicates acknowledgment
--- NOTE | 2018-06-18 16:53 | CL.D_ITS ---
Patient Name: HENRY ESCOBEDO Study Date: 06/18/2018 Performing: Ralph Reeder MD Ht: 70 inches 178 cm : 1965 Wt: 174.4 lbs 79 kg Age: 53 Gender: male BSA: 1.97 PROCEDURE(S) PERFORMED [id number]/COR/LV NH23-GSS W OR WO PTCA, SINGLE CORONARY ARTERY CLINICAL PROFILE AND INDICATIONS Indications: ACS <= 24 hrs, Worsening Angina, Suspected CAD, Cardiac Arrythmia, LV Dysfunction, A CS <= 24 hrs, Cardiac Arrythmia Heart Failure: NYHA Class: 1, Newly Diagnosed: Yes, Heart Failure Type: Systolic Stress/Imaging Stress/Image Study Performed: No Stress/Image Study Performed: No Angina Classification Anginal Classification w/in 2 Weeks: CCS IV CAD Presentations: Non-STEMI. Symptom onset Date/Time: 06/18/2018 Time Not Available Non-STEMI. Comorbidities/Risk Factors: Hypertension Dyslipidemia CONCLUSIONS Elevated Left Ventricular End Diastolic Pressure Segmented LV systolic dysfunction- Mild LVEF: by LV gram 55 % [place] Multivessel CAD (predominantly RPDA) RECOMMENDATIONS Risk factor modification Medical therapy Referred for immediate PCI DESCRIPTION OF PROCEDURE The patient arrived to the procedure lab. The risks and benefits of the procedure as well as a full d escription of our services here and current unavailability of surgical backup were fully explained to the patient and/or their significant other prior to the catheterization. The Timeout was completed, verifying the correct patient and procedure. The patient's procedural site was prepped and draped in the usual fashion. Local anesthetic was given subcutaneously to right groin region with Lidocaine 2%. Using a modified Seldinger technique, arterial access was obtained via the right femoral artery, a 4 Fr sheath was inserted Left Coronary Artery selective angiography was performed in multiple views us ing a 4 Fr. JL5 catheter. Left Coronary Artery selective angiography was performed in multiple views using a 4 Fr. AL 1 catheter. Right Coronary Artery selective angiography was then performed in multip le views using a 4 Fr. 3DRC catheter. Left Ventriculography was performed in KAY projection using a 4 Fr. Pigtail catheter. LV to AO pullback pressures were then recorded.The arterial sheath was sutured in place and capped CORONARY ANGIOGRAPHY DOMINANCE: Right Dominant LEFT HEART ASSESSMENT Left Ventricular Ejection Fraction: by LV Gram 55 % Inferior Mid Hypokinesis Elevated Left Ventricular End Diastolic Pressure LVEDP: 19 mmHg LEFT MAIN: Angiographically normal LEFT ANTERIOR DECENDING ARTERY: Mild luminal irregularities CIRCUMFLEX ARTERY: Mild luminal irregularities RAMUS: Mild luminal irregularities RIGHT CORONARY ARTERY: Mild luminal irregularities RT PDA: Mid - 99 % Stenosis VALVE FINDINGS: Normal Aortic Valve function Normal Mitral Valve function AORTIC ROOT: Angiographically normal COMPLICATIONS No Complications PROCEDURE MEDICATIONS Versed 1 mg IV Oxygen: 2 L/min via nasal cannula Heparin 6000 unit(s) IV 06/18/2018 10:09:25 Nitro 200 mcg IC 06/18/2018 10:10:30 Nitro 200 mcg IC 06/18/2018 10:10:30 IV Bolus: .9 NaCl 400 ml total 06/18/2018 10:07:31 IV Fluids: .9 NaCl IV started @ 100 ml/hr 06/18/2018 10:04:10 SUMMARY OF HEMODYNAMIC DATA Time AIR REST ECG 09:16:35 ECG 09:22:09 ECG 09:22:29 AO 86/72 (80) SA 09:36:09 LV 129/-1, 23 09:52:58 LV 128/-2, 19 09:53:05 LV 126/4, 22 09:54:09 LVp 130/4, 20 09:54:41 AOp 130/71 (96) 09:54:46 AO 130/71 (95) 09:56:35 Signed By Ralph Reeder MD On 06/18/2018 16:53:09 Ralph Reeder MD
--- NOTE | 2018-06-18 18:21 | PCM.PN.CARD ---
Subjectve: The patient underwent diagnostic cardiac catheterization earlier this day. This led to a right PDA PCI. He appears to be resting comfortably at this time. Objective: Vital Signs Temp Pulse Resp BP Pulse Ox 98.0 F 55 L 16 131/83 H 96 06/18/18 12:00 06/18/18 18:00 06/18/18 18:00 06/18/18 18:00 06/18/18 18:00 Oxygen Flow Rate (L/min) 2 Oxygen Delivery Method Room Air Weight: 175 lb 0.752 oz Body Mass Index (BMI) 25.1 Intake and Output for Last 24 Hours 06/16/18 06/17/18 06/18/18 23:59 23:59 23:59 Intake Total 153 / 153 Output Total 350 / 350 Balance -197 / -197 General: Awake, Alert, Oriented x 3, Cooperative, No Acute Distress HEENT: Atraumatic, Normocephalic, PERRL, EOMI, Sclera Non Icteric Oral: Moist Mucosa Neck: Supple, Good ROM, No JVD Lungs: Clear to auscultation Cardiovascular: Regular Rhythm, Premature Ectopic Beats, Normal S1, Normal S2 Vascular: Normal Femoral Pulses Abdomen: Bowel Sounds Present, Soft, Non Tender Extremities: No Cyanosis, No Clubbing, No edema Neurological: No Focal Motor or Sensory Deficit 06/18/18 01:40: WBC 13.3 H, RBC 5.45, Hgb 16.8 H, Hct 48.5, MCV 89.0, MCH 30.8, MCHC 34.6, RDW 12.9, RDW Differential 42.4, Plt Count 206, MPV 11.6, Immature Gran % (Auto) 0.200, Neut % (Auto) 73.5 H, Lymph % (Auto) 15.8 L, Long % (Auto) 8.6, Eos % (Auto) 1.4, Baso % (Auto) 0.5, Absolute Neuts (auto) 9.8 H, Total Counted Not Reportable 06/18/18 01:40: Sodium 138, Potassium 4.3, Chloride 105, Carbon Dioxide 27.0, Anion Gap 6, BUN 9, Creatinine 0.98, Est GFR (MDRD) Af Amer 102, Est GFR (MDRD) Non-Af 84, BUN/Creatinine Ratio 9.2 L, Glucose 122 H, Calcium 8.6, Troponin I 3.130 H* 06/18/18 01:40: D-Dimer Quant (PE/DVT) 0.32 06/18/18 01:40: PT 13.5, INR 1.0 06/18/18 01:40: APTT 32.0 06/18/18 05:20: Troponin I 13.500 H* 06/18/18 05:20: PT 14.9, INR 1.2 06/18/18 05:20: WBC 15.4 H, RBC 5.50, Hgb 16.7 H, Hct 49.6, MCV 90.2, MCH 30.4, MCHC 33.7, RDW 13.0, RDW Differential 42.8, Plt Count 225, MPV 12.1 H, Immature Gran % (Auto) 0.300, Neut % (Auto) 66.2, Lymph % (Auto) 24.2, Long % (Auto) 7.6, Eos % (Auto) 1.4, Baso % (Auto) 0.3, Absolute Neuts (auto) 10.2 H, Total Counted Not Reportable 06/18/18 08:05: Sodium 140, Potassium 4.1, Chloride 107, Carbon Dioxide 26.0, Anion Gap 7, BUN 8, Creatinine 0.87, Est GFR (MDRD) Af Amer 118, Est GFR (MDRD) Non-Af 98, BUN/Creatinine Ratio 9.2 L, Glucose 88, Calcium 8.6, Troponin I 20.600 H*, Triglycerides 95, Cholesterol 148, LDL Cholesterol 91, VLDL Cholesterol 19, HDL Cholesterol 38 L 06/18/18 09:29: APTT Cancelled Rhythm: Sinus rhythm; PVCs; an episode of nonsustained wide complex tachycardia compatible with nonsustained VT EKG: Sinus rhythm; inferior NE of indeterminate age cannot be excluded ECHO: Please see official report Cardiac Cath: Please see official report PCI: Please see official report Medical Necessity - Tobacco Use Smoking Status: Current some day smoker Tobacco Use: Cigarettes Assessment/Plan 1. Non-ST segment elevation NE The patient presents with signs and symptoms compatible with a non-ST segment elevation NE. He appears to be symptomatically improved at the moment status post medical management and PCI. At the present time he continues to be monitored. His cardiac enzymes are being followed. His ECG will be followed. 2. CAD The patient has been diagnosed with CAD. He underwent right PDA PCI. He will continue medical management and follow-up. 3. Nonsustained wide complex tachycardia/nonsustained VT The patient has had an episode status post his PCI. He was without hemodynamic compromise. This episode may represent a reperfusion arrhythmia. At the present time he will continue to be followed and treated medically. If he has recurrent cardiac dysrhythmias, especially with any symptomatic or hemodynamic compromise, he may need additional medical therapy/antiarrhythmic therapy, etc. 4. Hypertension The patient may have a history of hypertension-untreated. His blood pressures will need to be followed. He will be treated medically as deemed appropriate. Comment: The above was discussed and reviewed with the patient. This note was generated with [employer] (formerly [employer]) dictation software. It may contain incorrect words, spelling, and punctuation that were not noted in checking the note before signing.
--- NOTE | 2018-06-18 18:24 | PN.CARD_ITS ---
Subjectve: The patient underwent diagnostic cardiac catheterization earlier this day. This led to a right PDA PCI. He appears to be resting comfortably at this time. Objective: Vital Signs Temp Pulse Resp BP Pulse Ox 98.0 F 55 L 16 131/83 H 96 06/18/18 12:00 06/18/18 18:00 06/18/18 18:00 06/18/18 18:00 06/18/18 18:00 Oxygen Flow Rate (L/min) 2 Oxygen Delivery Method Room Air Weight: 175 lb 0.752 oz Body Mass Index (BMI) 25.1 Intake and Output for Last 24 Hours 06/16/18 06/17/18 06/18/18 23:59 23:59 23:59 Intake Total 153 / 153 Output Total 350 / 350 Balance -197 / -197 General: Awake, Alert, Oriented x 3, Cooperative, No Acute Distress HEENT: Atraumatic, Normocephalic, PERRL, EOMI, Sclera Non Icteric Oral: Moist Mucosa Neck: Supple, Good ROM, No JVD Lungs: Clear to auscultation Cardiovascular: Regular Rhythm, Premature Ectopic Beats, Normal S1, Normal S2 Vascular: Normal Femoral Pulses Abdomen: Bowel Sounds Present, Soft, Non Tender Extremities: No Cyanosis, No Clubbing, No edema Neurological: No Focal Motor or Sensory Deficit 06/18/18 01:40: WBC 13.3 H, RBC 5.45, Hgb 16.8 H, Hct 48.5, MCV 89.0, MCH 30.8, MCHC 34.6, RDW 12.9, RDW Differential 42.4, Plt Count 206, MPV 11.6, Immature Gran % (Auto) 0.200, Neut % (Auto) 73.5 H, Lymph % (Auto) 15.8 L, [place] % (Auto) 8.6, Eos % (Auto) 1.4, Baso % (Auto) 0.5, Absolute Neuts (auto) 9.8 H, Total Counted Not Reportable 06/18/18 01:40: Sodium 138, Potassium 4.3, Chloride 105, Carbon Dioxide 27.0, Anion Gap 6, BUN 9, Creatinine 0.98, Est GFR (MDRD) Af Amer 102, Est GFR (MDRD) Non-Af 84, BUN/Creatinine Ratio 9.2 L, Glucose 122 H, Calcium 8.6, Troponin I 3.130 H* 06/18/18 01:40: D-Dimer Quant (PE/DVT) 0.32 06/18/18 01:40: PT 13.5, INR 1.0 06/18/18 01:40: APTT 32.0 06/18/18 05:20: Troponin I 13.500 H* 06/18/18 05:20: PT 14.9, INR 1.2 06/18/18 05:20: WBC 15.4 H, RBC 5.50, Hgb 16.7 H, Hct 49.6, MCV 90.2, MCH 30.4, MCHC 33.7, RDW 13.0, RDW Differential 42.8, Plt Count 225, MPV 12.1 H, Immature Gran % (Auto) 0.300, Neut % (Auto) 66.2, Lymph % (Auto) 24.2, [place] % (Auto) 7.6, Eos % (Auto) 1.4, Baso % (Auto) 0.3, Absolute Neuts (auto) 10.2 H, Total Counted Not Reportable 06/18/18 08:05: Sodium 140, Potassium 4.1, Chloride 107, Carbon Dioxide 26.0, Anion Gap 7, BUN 8, Creatinine 0.87, Est GFR (MDRD) Af Amer 118, Est GFR (MDRD) Non-Af 98, BUN/Creatinine Ratio 9.2 L, Glucose 88, Calcium 8.6, Troponin I 20.600 H*, Triglycerides 95, Cholesterol 148, LDL Cholesterol 91, VLDL Cholesterol 19, HDL Cholesterol 38 L 06/18/18 09:29: APTT Cancelled Rhythm: Sinus rhythm; PVCs; an episode of nonsustained wide complex tachycardia compatible with nonsustained VT EKG: Sinus rhythm; inferior [place] of indeterminate age cannot be excluded ECHO: Please see official report Cardiac Cath: Please see official report PCI: Please see official report Medical Necessity - Tobacco Use Smoking Status: Current some day smoker Tobacco Use: Cigarettes Assessment/Plan 1. Non-ST segment elevation [place] The patient presents with signs and symptoms compatible with a non-ST segment elevation [place]. He appears to be symptomatically improved at the moment status post medical management and PCI. At the present time he continues to be monitored. His cardiac enzymes are being followed. His ECG will be followed. 2. CAD The patient has been diagnosed with CAD. He underwent right PDA PCI. He will continue medical management and follow-up. 3. Nonsustained wide complex tachycardia/nonsustained VT The patient has had an episode status post his PCI. He was without hemodynamic compromise. This episode may represent a reperfusion arrhythmia. At the present time he will continue to be followed and treated medically. If he has recurrent cardiac dysrhythmias, especially with any symptomatic or hemodynamic compromise, he may need additional medical therapy/antiarrhythmic therapy, etc. 4. Hypertension The patient may have a history of hypertension-untreated. His blood pressures will need to be followed. He will be treated medically as deemed appropriate. Comment: The above was discussed and reviewed with the patient. This note was generated with [employer] dictation software. It may contain incorrect words, spelling, and punctuation that were not noted in checking the note before signing.
[2018-06-18] MEDS: Metoprolol Tartrate 25 MG Tablet 12.5 MG PO (21:36)
[2018-06-19] VITALS (24 sets, daily range): BP systolic 106–137; BP diastolic 47–97; PULSE 43–70; RESP 13–20; TEMP 36.4–37; O2SAT 96–99
[2018-06-19 04:45] LABS: Absolute Lymphocyte Count 2.32 X10^3/ul (0.83-4.51); Absolute Neutrophil Count 7.6 X10^3/uL (2.0-7.7); Basophil# 0.04 X10^3/uL; Basophil% 0.3 % (0-1); Eosinophil# 0.24 X10^3/uL; Eosinophils% 2.1 % (0-5); Hematocrit 48.8 % (40-54); Hemoglobin 16.6 g/dl (13.0-16.5); Lymphocyte # 2.32 X10^3/ul (4.0); Lymphocyte % 20.3 % (19-41); Mean Corpuscular Hgb 30.6 pg (27.0-32.0); Mean Corpuscular Volume 89.9 fL (80-94); Mean Platelet Vol. 11.8 fl (6.2-12.0); Monocyte# 1.23 X10^3/uL; Monocyte% 10.8 % (0-10); Neutrophil # 7.58 X10^3/uL (2.7-7.7); Neutrophil % 66.2 % (47-70); Platelet Count 235 K/mm3 (150-450); RBC Distribution Width CV 13.1 % (11.6-14.6); RBC Distribution Width SD 42.5 fl (35.1-43.9); Red Blood Count 5.43 M/mm3 (4.6-6.2); White Blood Count 11.4 K/mm3 (4.4-11.0)
[2018-06-19 04:51] LABS: POSITIVE COUNT NO; POSITIVE DIFFERENTIAL NO; POSITIVE MORPHOLOGY NO
[2018-06-19 04:55] LABS: Anion Gap 7 (5-15); BUN 9 mg/dL (7-18); BUN/Creat Ratio 9.6 RATIO (10-20); Calcium,Total 8.7 mg/dL (8.5-10.1); Chloride 107 mmol/L (98-107); Creatinine, Serum 0.94 mg/dL (0.70-1.30); EST Glomerular Filtration Rate 89 mL/min (>60); Est Glom Filt Rate - Afr Amer 108 mL/min (>60); Estimated Creatinine Clearance 92.76 ml/min; Glucose 94 mg/dL (74-106); Potassium 4.5 mmol/L (3.5-5.1); Sodium Level 140 mmol/L (136-145)
--- NOTE | 2018-06-19 05:55 | EKG12_ITS ---
Test Reason : POST PCI Blood Pressure : / mmHG Vent. Rate : 052 BPM Atrial Rate : 052 BPM P-R Int : 170 ms QRS Dur : 088 ms QT Int : 408 ms P-R-T Axes : 060 005 050 degrees QTc Int : 379 ms Sinus bradycardia Inferior infarct , possibly acute Abnormal ECG When compared with ECG of 18-JUN-2018 05:17, MANUAL COMPARISON REQUIRED, DATA IS UNCONFIRMED Confirmed by VOLODYMYR ENNIS ([id number]), fashion editor TODD RAND ([id number]) on 06/26/2018 11:45:56 AM Referred By: RAYMON Confirmed By:VOLODYMYR ENNIS
[2018-06-19] MEDS: Aspirin E.C. 81 MG Tablet PO (07:53)
[2018-06-19] MEDS: Metoprolol Tartrate 25 MG Tablet 12.5 MG PO ×2 (09:59→21:42)
[2018-06-19] MEDS: Lisinopril 2.5 MG Tablet PO (09:59)
[2018-06-19] MEDS: TICAGRELOR 90 MG TABLET PO ×2 (09:59→21:41)
--- NOTE | 2018-06-19 10:09 | NURSING ---
Report received from ELLEN Coreas RN
--- NOTE | 2018-06-19 13:57 | PCM.PN.CARD ---
Subjectve: The patient is awake and alert. He states he feels better today. He has no ongoing chest discomfort. He denies any worsening shortness of breath or dyspnea. He has not recognized any palpitations nor has he had any sensation of near syncope. Objective: Vital Signs Temp Pulse Resp BP Pulse Ox 97.9 F 56 L 16 135/79 H 99 06/19/18 10:24 06/19/18 11:04 06/19/18 10:24 06/19/18 10:24 06/19/18 10:24 Oxygen Flow Rate (L/min) 2 Oxygen Delivery Method Room Air Weight: 175 lb 11.335 oz Body Mass Index (BMI) 25.1 Intake and Output for Last 24 Hours 06/17/18 06/18/18 06/19/18 23:59 23:59 23:59 Intake Total 1291 / 1291 440 / 440 Output Total 1625 / 1625 400 / 400 Balance -334 / -334 40 / 40 General: Awake, Alert, Oriented x 3, Cooperative, No Acute Distress HEENT: Atraumatic, Normocephalic, PERRL, EOMI, Sclera Non Icteric Oral: Moist Mucosa Neck: Supple, Good ROM, No JVD Lungs: Clear to auscultation Cardiovascular: Regular Rhythm, Premature Ectopic Beats, Normal S1, Normal S2 Vascular: Normal Femoral Pulses Abdomen: Bowel Sounds Present, Soft, Non Tender Extremities: No Cyanosis, No Clubbing, No edema Neurological: No Focal Motor or Sensory Deficit Psych/Mental Status: Appropriate 06/19/18 04:30: WBC 11.4 H, RBC 5.43, Hgb 16.6 H, Hct 48.8, MCV 89.9, MCH 30.6, MCHC 34.0, RDW 13.1, RDW Differential 42.5, Plt Count 235, MPV 11.8, Immature Gran % (Auto) 0.300, Neut % (Auto) 66.2, Lymph % (Auto) 20.3, [place] % (Auto) 10.8 H, Eos % (Auto) 2.1, Baso % (Auto) 0.3, Absolute Neuts (auto) 7.6, Total Counted Not Reportable 06/19/18 04:30: Sodium 140, Potassium 4.5, Chloride 107, Carbon Dioxide 26.0, Anion Gap 7, BUN 9, Creatinine 0.94, Est GFR (MDRD) Af Amer 108, Est GFR (MDRD) Non-Af 89, BUN/Creatinine Ratio 9.6 L, Glucose 94, Calcium 8.7 Rhythm: Sinus rhythm; PVCs; rare ventricular couplet/triplet EKG: Sinus rhythm; inferior [place] pattern of indeterminate age cannot be excluded Medical Necessity - Tobacco Use Smoking Status: Current some day smoker Tobacco Use: Cigarettes Assessment/Plan 1. Non-ST segment elevation [place] The patient presents with signs and symptoms compatible with a non-ST segment elevation [place]. He appears to be symptomatically improved at the moment status post medical management and PCI. At the present time he continues to be monitored. He will be transferred from the ICU to the PCU for continued cardiovascular evaluation and care 2. CAD The patient has been diagnosed with CAD. He underwent right PDA PCI. He will continue medical management and follow-up. 3. Nonsustained wide complex tachycardia/nonsustained VT The patient has had an episode status post his PCI. He was without hemodynamic compromise. This episode may represent a reperfusion arrhythmia. At the present time he will continue to be followed and treated medically. If he has recurrent cardiac dysrhythmias, especially with any symptomatic or hemodynamic compromise, he may need additional medical therapy/antiarrhythmic therapy, etc. 4. Hypertension The patient may have a history of hypertension-untreated. His blood pressures will need to be followed. He will be treated medically as deemed appropriate. Comment: The above was discussed and reviewed with the patient and Dr. Noe. This note was generated with [employer] dictation software. It may contain incorrect words, spelling, and punctuation that were not noted in checking the note before signing.
--- NOTE | 2018-06-19 14:00 | PN.CARD_ITS ---
Subjectve: The patient is awake and alert. He states he feels better today. He has no ongoing chest discomfort. He denies any worsening shortness of breath or dyspnea. He has not recognized any palpitations nor has he had any sensation of near syncope. Objective: Vital Signs Temp Pulse Resp BP Pulse Ox 97.9 F 56 L 16 135/79 H 99 06/19/18 10:24 06/19/18 11:04 06/19/18 10:24 06/19/18 10:24 06/19/18 10:24 Oxygen Flow Rate (L/min) 2 Oxygen Delivery Method Room Air Weight: 175 lb 11.335 oz Body Mass Index (BMI) 25.1 Intake and Output for Last 24 Hours 06/17/18 06/18/18 06/19/18 23:59 23:59 23:59 Intake Total 1291 / 1291 440 / 440 Output Total 1625 / 1625 400 / 400 Balance -334 / -334 40 / 40 General: Awake, Alert, Oriented x 3, Cooperative, No Acute Distress HEENT: Atraumatic, Normocephalic, PERRL, EOMI, Sclera Non Icteric Oral: Moist Mucosa Neck: Supple, Good ROM, No JVD Lungs: Clear to auscultation Cardiovascular: Regular Rhythm, Premature Ectopic Beats, Normal S1, Normal S2 Vascular: Normal Femoral Pulses Abdomen: Bowel Sounds Present, Soft, Non Tender Extremities: No Cyanosis, No Clubbing, No edema Neurological: No Focal Motor or Sensory Deficit Psych/Mental Status: Appropriate 06/19/18 04:30: WBC 11.4 H, RBC 5.43, Hgb 16.6 H, Hct 48.8, MCV 89.9, MCH 30.6, MCHC 34.0, RDW 13.1, RDW Differential 42.5, Plt Count 235, MPV 11.8, Immature Gran % (Auto) 0.300, Neut % (Auto) 66.2, Lymph % (Auto) 20.3, [place] % (Auto) 10.8 H, Eos % (Auto) 2.1, Baso % (Auto) 0.3, Absolute Neuts (auto) 7.6, Total Counted Not Reportable 06/19/18 04:30: Sodium 140, Potassium 4.5, Chloride 107, Carbon Dioxide 26.0, Anion Gap 7, BUN 9, Creatinine 0.94, Est GFR (MDRD) Af Amer 108, Est GFR (MDRD) Non-Af 89, BUN/Creatinine Ratio 9.6 L, Glucose 94, Calcium 8.7 Rhythm: Sinus rhythm; PVCs; rare ventricular couplet/triplet EKG: Sinus rhythm; inferior [place] pattern of indeterminate age cannot be excluded Medical Necessity - Tobacco Use Smoking Status: Current some day smoker Tobacco Use: Cigarettes Assessment/Plan 1. Non-ST segment elevation [place] The patient presents with signs and symptoms compatible with a non-ST segment elevation [place]. He appears to be symptomatically improved at the moment status post medical management and PCI. At the present time he continues to be monitored. He will be transferred from the ICU to the PCU for continued cardiovascular evaluation and care 2. CAD The patient has been diagnosed with CAD. He underwent right PDA PCI. He will continue medical management and follow-up. 3. Nonsustained wide complex tachycardia/nonsustained VT The patient has had an episode status post his PCI. He was without hemodynamic compromise. This episode may represent a reperfusion arrhythmia. At the present time he will continue to be followed and treated medically. If he has recurrent cardiac dysrhythmias, especially with any symptomatic or hemodynamic compromise, he may need additional medical therapy/antiarrhythmic therapy, etc. 4. Hypertension The patient may have a history of hypertension-untreated. His blood pressures will need to be followed. He will be treated medically as deemed appropriate. Comment: The above was discussed and reviewed with the patient and Dr. Noe. This note was generated with [email or web address] dictation software. It may contain incorrect words, spelling, and punctuation that were not noted in checking the note before signing.
--- NOTE | 2018-06-19 14:25 | PCM.PROGNOTE ---
<Fermin Thomas - Last Filed: 06/19/18 14:25> Patient Problems: Active and Suspected Problems Non-ST elevation [place] (NSTEMI) (Acute) Subjective: Patient resting comfortably in bed no acute distress. Yesterday he underwent cardiac catheterization with 1 stent placement. After the catheterization he had a episode of nonsustained V. tach. No medication changes have been made and cardiology is aware. Today he has no chest pain, shortness of breath, heaviness, tightness, pressure, no sensation of palpitations, dizziness or lightheadedness. - Physical Exam General: Alert, Oriented x3, Cooperative HEENT: Atraumatic, PERRLA, EOMI, Normocephalic Neck: Supple, No JVD, Negative Carotid Bruits Lungs: Clear to auscultation, Normal air movement Cardiovascular: Regular rate, No murmurs Abdomen: Bowel Sounds Present, Soft, Non Tender Extremities: No edema, Capillary Refill Less than 3 Seconds Skin: No rashes, No breakdown Musculoskeletal: No Tenderness to Palpation of Joints or Extremities Neurological: Cranial nerves II-XII grossly intact Psych/Mental Status: Normal Affect, Appropriate, Alert and oriented to time, place, person, mood and affect Vital Signs Temp Pulse Resp BP Pulse Ox 97.9 F 56 L 16 135/79 H 99 06/19/18 10:24 06/19/18 11:04 06/19/18 10:24 06/19/18 10:24 06/19/18 10:24 Oxygen Flow Rate (L/min) 2 Oxygen Delivery Method Room Air Weight: 175 lb 11.335 oz Body Mass Index (BMI) 25.1 Intake and Output for Last 24 Hours 06/17/18 06/18/18 06/19/18 23:59 23:59 23:59 Intake Total 1291 / 1291 440 / 440 Output Total 1625 / 1625 400 / 400 Balance -334 / -334 40 / 40 Laboratory Tests Past 24 Hrs 06/19/18 06/19/18 04:30 04:30 WBC 11.4 H RBC 5.43 Hgb 16.6 H Hct 48.8 MCV 89.9 MCH 30.6 MCHC 34.0 RDW 13.1 RDW Differential 42.5 Plt Count 235 MPV 11.8 Immature Gran % (Auto) 0.300 Neut % (Auto) 66.2 Lymph % (Auto) 20.3 [place] % (Auto) 10.8 H Eos % (Auto) 2.1 Baso % (Auto) 0.3 Absolute Neuts (auto) 7.6 Absolute Lymphs (auto) 2.32 Total Counted Not Reportable Sodium 140 Potassium 4.5 Chloride 107 Carbon Dioxide 26.0 Anion Gap 7 BUN 9 Creatinine 0.94 Estim Creat Clear Calc 92.76 Est GFR (MDRD) Af Amer 108 Est GFR (MDRD) Non-Af 89 BUN/Creatinine Ratio 9.6 L Glucose 94 Calcium 8.7 Medical Necessity - Tobacco Use Smoking Status: Current some day smoker Tobacco Use: Cigarettes Assessment/Plan All Active Problems Non-ST elevation [place] (NSTEMI) (Acute) 1. NSTEMI/CAD - s/p 1 stent. aspirin, statin, lopressor, brilinta, fannie-i. Asymptomatic post cath. EF 55%, segmental dysfunction, RVSP 23 on echo. -Continues to be asymptomatic. -One episode of post cath nonsustained V. tach. Will maintain overnight and monitor for any recurrence. No further changes at this time. 2. Nicotine abuse - patch DC planning: likely home tomorrow. This patient was seen by Fermin Thomas PA-C under the supervision of Dr. Noe <Rupert Noe F - Last Filed: 06/19/18 15:31> - Physical Exam Vital Signs Temp Pulse Resp BP Pulse Ox 97.9 F 55 L 16 135/79 H 99 06/19/18 10:24 06/19/18 15:04 06/19/18 10:24 06/19/18 10:24 06/19/18 10:24 Oxygen Flow Rate (L/min) 2 Oxygen Delivery Method Room Air Weight: 175 lb 11.335 oz Body Mass Index (BMI) 25.1 Intake and Output for Last 24 Hours 06/17/18 06/18/18 06/19/18 23:59 23:59 23:59 Intake Total 1291 / 1291 440 / 440 Output Total 1625 / 1625 400 / 400 Balance -334 / -334 40 / 40 Laboratory Tests Past 24 Hrs 06/19/18 06/19/18 06/19/18 04:30 04:30 14:30 WBC 11.4 H RBC 5.43 Hgb 16.6 H Hct 48.8 MCV 89.9 MCH 30.6 MCHC 34.0 RDW 13.1 RDW Differential 42.5 Plt Count 235 MPV 11.8 Immature Gran % (Auto) 0.300 Neut % (Auto) 66.2 Lymph % (Auto) 20.3 [place] % (Auto) 10.8 H Eos % (Auto) 2.1 Baso % (Auto) 0.3 Absolute Neuts (auto) 7.6 Absolute Lymphs (auto) 2.32 Total Counted Not Reportable Sodium 140 Potassium 4.5 Chloride 107 Carbon Dioxide 26.0 Anion Gap 7 BUN 9 Creatinine 0.94 Estim Creat Clear Calc 92.76 Est GFR (MDRD) Af Amer 108 Est GFR (MDRD) Non-Af 89 BUN/Creatinine Ratio 9.6 L Glucose 94 Calcium 8.7 Troponin I Pending Code Visit Addendum: Dr. Noe I personally examined the patient and reviewed the chart. I agree with the above. 53-year-old male with past medical history consistent consistent with hypertension presenting with chest pain. On admission patient was found to have a climbing troponin with a peak of 20.6, and EKG changes with T wave inversions in the inferior leads. He was taken for cath and had a stent placed and was transferred to the CVICU. He had nonsustained V. tach yesterday after the cardiac cath. We will transfer to PCU for further monitoring of the V. tach prior to discharge possibly tomorrow Inpatient E&M: 90637 Subs Hosp L2
[2018-06-19] MEDS: Atorvastatin Calcium 80 MG Tablet PO (21:41)
[2018-06-20] VITALS (9 sets, daily range): BP systolic 120–133; BP diastolic 74–78; PULSE 40–70; RESP 14–16; TEMP 36.7–37.2; O2SAT 95–96
--- NOTE | 2018-06-20 05:55 | EKG12_ITS ---
Test Reason : AM EKG Blood Pressure : / mmHG Vent. Rate : 054 BPM Atrial Rate : 054 BPM P-R Int : 164 ms QRS Dur : 090 ms QT Int : 418 ms P-R-T Axes : 058 -18 -21 degrees QTc Int : 396 ms Sinus bradycardia Inferior infarct , age undetermined Abnormal ECG When compared with ECG of 19-JUN-2018 04:27, MANUAL COMPARISON REQUIRED, DATA IS UNCONFIRMED Confirmed by VOLODYMYR ENNIS ([id number]), publication editor TODD ARND ([id number]) on 06/26/2018 11:38:40 AM Referred By: JERRI Confirmed By:VOLODYMYR ENNIS
[2018-06-20 06:51] LABS: Anion Gap 6 (5-15); BUN 13 mg/dL (7-18); BUN/Creat Ratio 12.3 RATIO (10-20); Calcium,Total 8.6 mg/dL (8.5-10.1); Chloride 106 mmol/L (98-107); Creatinine, Serum 1.06 mg/dL (0.70-1.30); EST Glomerular Filtration Rate 77 mL/min (>60); Est Glom Filt Rate - Afr Amer 94 mL/min (>60); Estimated Creatinine Clearance 82.26 ml/min; Glucose 92 mg/dL (74-106); Potassium 4.3 mmol/L (3.5-5.1); Sodium Level 139 mmol/L (136-145)
[2018-06-20] MEDS: Aspirin E.C. 81 MG Tablet PO (08:15)
[2018-06-20] MEDS: TICAGRELOR 90 MG TABLET PO (09:29)
[2018-06-20] MEDS: Metoprolol Tartrate 25 MG Tablet 12.5 MG PO (09:29)
[2018-06-20] MEDS: Lisinopril 2.5 MG Tablet PO (09:29)
--- NOTE | 2018-06-20 12:22 | PCM.PN.CARD ---
Subjectve: The patient has been up and ambulating without difficulty. He has no other new concerns was chest discomfort or difficulty breathing. There is been no issues with ongoing palpitations or rapid rates. There is been no near syncope or syncope. Objective: Vital Signs Temp Pulse Resp BP Pulse Ox 98.5 F 62 14 120/78 95 06/20/18 09:25 06/20/18 11:10 06/20/18 09:25 06/20/18 09:29 06/20/18 09:25 Oxygen Flow Rate (L/min) 2 Oxygen Delivery Method Room Air Weight: 173 lb 4.533 oz Body Mass Index (BMI) 25.1 Intake and Output for Last 24 Hours 06/18/18 06/19/18 06/20/18 23:59 23:59 23:59 Intake Total 1291 / 1291 940 / 940 200 / 200 Output Total 1625 / 1625 400 / 400 Balance -334 / -334 540 / 540 200 / 200 General: Awake, Alert, Oriented x 3, Cooperative, No Acute Distress HEENT: Atraumatic, Normocephalic, PERRL, EOMI, Sclera Non Icteric Oral: Moist Mucosa Neck: Supple, Good ROM, No JVD Lungs: Clear to auscultation Cardiovascular: Regular Rhythm, Normal S1, Normal S2 Vascular: No Carotid Bruits Abdomen: Bowel Sounds Present, Soft, Non Tender Extremities: No edema Neurological: No Focal Motor or Sensory Deficit 06/19/18 14:30: Troponin I 8.260 H* 06/20/18 05:30: Sodium 139, Potassium 4.3, Chloride 106, Carbon Dioxide 27.0, Anion Gap 6, BUN 13, Creatinine 1.06, Est GFR (MDRD) Af Amer 94, Est GFR (MDRD) Non-Af 77, BUN/Creatinine Ratio 12.3, Glucose 92, Calcium 8.6 Rhythm: Sinus rhythm/sinus bradycardia EKG: Sinus rhythm; inferior [place] of indeterminate age Medical Necessity - Tobacco Use Smoking Status: Current some day smoker Tobacco Use: Cigarettes Assessment/Plan 1. Non-ST segment elevation [place] The patient presents with signs and symptoms compatible with a non-ST segment elevation [place]. He appears to be symptomatically improved at the moment status post medical management and PCI. At the present time he continues to be monitored. He has been up and ambulating. He has had no new acute symptoms and/or adverse events. 2. CAD The patient has been diagnosed with CAD. He underwent right PDA PCI. He will continue medical management and follow-up. 3. Nonsustained wide complex tachycardia/nonsustained VT The patient has had an episode status post his PCI. He was without hemodynamic compromise. This episode may represent a reperfusion arrhythmia. He has continued beta-blockers. He has had no additional nonsustained wide complex tachycardia dysrhythmias. 4. Hypertension The patient may have a history of hypertension-untreated. His blood pressures will need to be followed. He will be treated medically as deemed appropriate. Overall, the tentative plan will be to release the patient home for continued outpatient cardiovascular follow-up and cardiac rehabilitation therapy. Comment: The above was discussed and reviewed with the patient and the [facility] hospitalist staff. This note was generated with [employer] dictation software. It may contain incorrect words, spelling, and punctuation that were not noted in checking the note before signing.
--- NOTE | 2018-06-20 12:28 | PN.CARD_ITS ---
Subjectve: The patient has been up and ambulating without difficulty. He has no other new concerns was chest discomfort or difficulty breathing. There is been no issues with ongoing palpitations or rapid rates. There is been no near syncope or syncope. Objective: Vital Signs Temp Pulse Resp BP Pulse Ox 98.5 F 62 14 120/78 95 06/20/18 09:25 06/20/18 11:10 06/20/18 09:25 06/20/18 09:29 06/20/18 09:25 Oxygen Flow Rate (L/min) 2 Oxygen Delivery Method Room Air Weight: 173 lb 4.533 oz Body Mass Index (BMI) 25.1 Intake and Output for Last 24 Hours 06/18/18 06/19/18 06/20/18 23:59 23:59 23:59 Intake Total 1291 / 1291 940 / 940 200 / 200 Output Total 1625 / 1625 400 / 400 Balance -334 / -334 540 / 540 200 / 200 General: Awake, Alert, Oriented x 3, Cooperative, No Acute Distress HEENT: Atraumatic, Normocephalic, PERRL, EOMI, Sclera Non Icteric Oral: Moist Mucosa Neck: Supple, Good ROM, No JVD Lungs: Clear to auscultation Cardiovascular: Regular Rhythm, Normal S1, Normal S2 Vascular: No Carotid Bruits Abdomen: Bowel Sounds Present, Soft, Non Tender Extremities: No edema Neurological: No Focal Motor or Sensory Deficit 06/19/18 14:30: Troponin I 8.260 H* 06/20/18 05:30: Sodium 139, Potassium 4.3, Chloride 106, Carbon Dioxide 27.0, Anion Gap 6, BUN 13, Creatinine 1.06, Est GFR (MDRD) Af Amer 94, Est GFR (MDRD) Non-Af 77, BUN/Creatinine Ratio 12.3, Glucose 92, Calcium 8.6 Rhythm: Sinus rhythm/sinus bradycardia EKG: Sinus rhythm; inferior [place] of indeterminate age Medical Necessity - Tobacco Use Smoking Status: Current some day smoker Tobacco Use: Cigarettes Assessment/Plan 1. Non-ST segment elevation [place] The patient presents with signs and symptoms compatible with a non-ST segment elevation [place]. He appears to be symptomatically improved at the moment status post medical management and PCI. At the present time he continues to be monitored. He has been up and ambulating. He has had no new acute symptoms and/or adverse events. 2. CAD The patient has been diagnosed with CAD. He underwent right PDA PCI. He will continue medical management and follow-up. 3. Nonsustained wide complex tachycardia/nonsustained VT The patient has had an episode status post his PCI. He was without hemodynamic compromise. This episode may represent a reperfusion arrhythmia. He has continued beta-blockers. He has had no additional nonsustained wide complex tachycardia dysrhythmias. 4. Hypertension The patient may have a history of hypertension-untreated. His blood pressures will need to be followed. He will be treated medically as deemed appropriate. Overall, the tentative plan will be to release the patient home for continued outpatient cardiovascular follow-up and cardiac rehabilitation therapy. Comment: The above was discussed and reviewed with the patient and the [facility] hospitalist staff. This note was generated with [employer] dictation software. It may contain incorrect words, spelling, and punctuation that were not noted in checking the note before signing.
--- NOTE | 2018-06-20 12:28 | DCINST_ITS ---
- Discharge Diagnoses Current Active Problems: Current Active and Chronic Problems Non-ST elevation DC (NSTEMI) (Acute) HTN (hypertension) (Chronic) You will use the following diet at home:: Cardiac Your food should be the consistency of: Regular Your liquids should be the consistency of: Regular/Thin Discharge Activity: - - No return to work until cleared per cardiology Allergies/Adverse Reactions: Allergies No Known Allergies Allergy (Verified 06/18/18 05:03) Medications to take at Discharge Aspirin E.C. [Ecotrin] 81 mg PO DAILY@0800 tablet 06/20/18 Atorvastatin Calcium [Lipitor] 80 mg PO QHS #30 tablet 06/20/18 Lisinopril [Zestril] 2.5 mg PO DAILY #30 tablet 06/20/18 Metoprolol Tartrate [Lopressor (beta marimar)] 12.5 mg PO BID #30 tablet 06/20/18 Nitroglycerin [Nitrostat] 0.4 mg SUBLINGUAL Q5M PRN #5 tablet 06/20/18 Ticagrelor [Brilinta] 90 mg PO BID #60 tablet 06/20/18 The following prescriptions were given: Atorvastatin Calcium [Lipitor] 80 mg PO QHS #30 tablet Lisinopril [Zestril] 2.5 mg PO DAILY #30 tablet Metoprolol Tartrate [Lopressor (beta marimar)] 12.5 mg PO BID #30 tablet Nitroglycerin [Nitrostat] 0.4 mg SUBLINGUAL Q5M PRN #5 tablet PRN Reason: Cardiac/Chest Pain Ticagrelor [Brilinta] 90 mg PO BID #60 tablet Primary Care Physician: Care Physician,No Primary [Primary Care Provider] - Please follow up with your Primary Care Physician in: 2 weeks Test Results: Test results from this visit will be discussed in further detail at your follow- up appointment, if applicable. Please Follow Up With: Ralph Reeder MD When: 1-2 weeks Please Follow Up With: Cardiac Rehab When: as directed Proposed Discharge Date: 06/20/18
--- NOTE | 2018-06-20 14:30 | PCM.HP.STD ---
Problem List (1) Non-ST elevation MT (NSTEMI) Status: Acute (2) HTN (hypertension) Status: Chronic History of Present Illness Date of Admission: 06/20/18 Chief Complaint: Chest pain Hospital Course: The patient is a 53 year old M with a hx of smoking only not on any medications at home who presents to the emergency room with complaints of chest pain. He described it is excruciating constant persistent substernal nonradiating chest pain that started several hours before admission. He had some lightheadedness this associated with. He was found to have an elevated troponin in the emerge C room and nonspecific EKG changes. He was felt to have a non-STEMI and cardiology was consulted, he was admitted to the PCU on cardiac telemetry. He was taken to the [facility] [employer] Vice President and underwent successful PCI of the mid PDA with drug-eluting stent. He was placed in the ICU following intervention. He was started on metoprolol, lisinopril, atorvastatin, baby aspirin, Brilinta. Following his PCI he had an episode of nonsustained V. tach on the monitor felt to be likely secondary to reperfusion. He was maintained on telemetry overnight for 1 more night to watch for further dysrhythmias. He had no further episodes remained completely asymptomatic. He was discharged home on the medications as mentioned above. He will start cardiac rehab and follow-up with cardiology in 1 week. Please follow-up with your PCP as well in 2 weeks. Patient discharged home in stable condition. Return to work as directed by cardiology. This patient was seen by Fermin Thomas PA-C under the supervision of Doctor Hasmukh. [] Past Medical History Past Medical History (Chronic Problems): Chronic Problems HTN (hypertension) (Chronic) Allergies No Known Allergies Allergy (Verified 06/18/18 05:03) Home Medications: Ambulatory Orders Medication Instructions Recorded Aspirin E.C. 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 He does not know whether it is left kidney or his right kidney. Lives: Alone Smoking Status: Current some day smoker Tobacco Use: Cigarettes Alcohol: None Drugs: None Patient Problems: Active and Suspected Problems Non-ST elevation MT (NSTEMI) (Acute) - Physical Exam Vital Signs Temp Pulse Resp BP Pulse Ox 98.9 F 70 14 133/78 H 96 06/20/18 14:18 06/20/18 14:18 06/20/18 14:18 06/20/18 14:18 06/20/18 14:18 Oxygen Flow Rate (L/min) 2 Oxygen Delivery Method Room Air Weight: 173 lb 4.533 oz Body Mass Index (BMI) 25.1 Intake and Output for Last 24 Hours 06/18/18 06/19/18 06/20/18 23:59 23:59 23:59 Intake Total 1291 / 1291 940 / 940 650 / 650 Output Total 1625 / 1625 400 / 400 Balance -334 / -334 540 / 540 650 / 650 Laboratory Tests Past 24 Hrs 06/19/18 06/20/18 14:30 05:30 Sodium 139 Potassium 4.3 Chloride 106 Carbon Dioxide 27.0 Anion Gap 6 BUN 13 Creatinine 1.06 Estim Creat Clear Calc 82.26 Est GFR (MDRD) Af Amer 94 Est GFR (MDRD) Non-Af 77 BUN/Creatinine Ratio 12.3 Glucose 92 Calcium 8.6 Troponin I 8.260 H* Assessment/Plan All Active Problems Non-ST elevation MT (NSTEMI) (Acute)
--- NOTE | 2018-06-20 14:35 | HP.PCM_ITS ---
Problem List (1) Non-ST elevation AR (NSTEMI) Status: Acute (2) HTN (hypertension) Status: Chronic History of Present Illness Date of Admission: 06/20/18 Chief Complaint: Chest pain Hospital Course: The patient is a 53 year old M with a hx of smoking only not on any medications at home who presents to the emergency room with complaints of chest pain. He described it is excruciating constant persistent substernal nonradiating chest pain that started several hours before admission. He had some lightheadedness this associated with. He was found to have an elevated troponin in the emerge C room and nonspecific EKG changes. He was felt to have a non-STEMI and cardiology was consulted, he was admitted to the PCU on cardiac telemetry. He was taken to the Ceramic Research Engineer and underwent successful PCI of the mid PDA with drug- eluting stent. He was placed in the ICU following intervention. He was started on metoprolol, lisinopril, atorvastatin, baby aspirin, Brilinta. Following his PCI he had an episode of nonsustained V. tach on the monitor felt to be likely secondary to reperfusion. He was maintained on telemetry overnight for 1 more night to watch for further dysrhythmias. He had no further episodes remained completely asymptomatic. He was discharged home on the medications as mentioned above. He will start cardiac rehab and follow-up with cardiology in 1 week. Please follow-up with your PCP as well in 2 weeks. Patient discharged home in stable condition. Return to work as directed by cardiology. This patient was seen by Fermin Thomas PA-C under the supervision of Doctor Hasmukh. [] Past Medical History Past Medical History (Chronic Problems): Chronic Problems HTN (hypertension) (Chronic) Allergies No Known Allergies Allergy (Verified 06/18/18 05:03) Home Medications: Ambulatory Orders Medication Instructions Recorded Aspirin E.C. 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 He does not know whether it is left kidney or his right kidney. Lives: Alone Smoking Status: Current some day smoker Tobacco Use: Cigarettes Alcohol: None Drugs: None Patient Problems: Active and Suspected Problems Non-ST elevation AR (NSTEMI) (Acute) - Physical Exam Vital Signs Temp Pulse Resp BP Pulse Ox 98.9 F 70 14 133/78 H 96 06/20/18 14:18 06/20/18 14:18 06/20/18 14:18 06/20/18 14:18 06/20/18 14:18 Oxygen Flow Rate (L/min) 2 Oxygen Delivery Method Room Air Weight: 173 lb 4.533 oz Body Mass Index (BMI) 25.1 Intake and Output for Last 24 Hours 06/18/18 06/19/18 06/20/18 23:59 23:59 23:59 Intake Total 1291 / 1291 940 / 940 650 / 650 Output Total 1625 / 1625 400 / 400 Balance -334 / -334 540 / 540 650 / 650 Laboratory Tests Past 24 Hrs 06/19/18 06/20/18 14:30 05:30 Sodium 139 Potassium 4.3 Chloride 106 Carbon Dioxide 27.0 Anion Gap 6 BUN 13 Creatinine 1.06 Estim Creat Clear Calc 82.26 Est GFR (MDRD) Af Amer 94 Est GFR (MDRD) Non-Af 77 BUN/Creatinine Ratio 12.3 Glucose 92 Calcium 8.6 Troponin I 8.260 H* Assessment/Plan All Active Problems Non-ST elevation AR (NSTEMI) (Acute)
--- NOTE | 2018-06-20 14:35 | PCM.DC.SUM ---
<Fermin Thomas - Last Filed: 06/20/18 14:35> Discharge Date and Diagnosis Date of Admission: 06/18/18 Date of Discharge: 06/20/18 - Primary Discharge Diagnosis Active and Suspected Problems Non-ST elevation SD (NSTEMI) (Acute) - Secondary Discharge Diagnosis Chronic Problems HTN (hypertension) (Chronic) Hospital Course and Treatment Imaging Results: Echo: Interpretation Summary Segmental dysfunction with preserved ejection fraction (see wall motion). The estimated ejection fraction is 55 %. Mild (1+) mitral valve insufficiency. Mild tricuspid valve insufficiency. Trivial aortic valve insufficiency. Trivial pulmonic valve insufficiency. Right ventricular systolic pressure estimated to be 23 mmHg. No evidence for diastolic dysfunction. RAD/Chest 1 View (Portable) IMPRESSION: No evidence for acute cardiopulmonary pathology. Consults: Cardiology - Lilli/Rei Operations: None Procedures: Cardiac catheterization Summary of Care Provided: Hospital Course: The patient is a 53 year old M with a hx of smoking only not on any medications at home who presents to the emergency room with complaints of chest pain. He described it is excruciating constant persistent substernal nonradiating chest pain that started several hours before admission. He had some lightheadedness this associated with. He was found to have an elevated troponin in the emerge C room and nonspecific EKG changes. He was felt to have a non-STEMI and cardiology was consulted, he was admitted to the PCU on cardiac telemetry. He was taken to the Super[employer] Maintenance And Custodians and underwent successful PCI of the mid PDA with drug-eluting stent. He was placed in the ICU following intervention. He was started on metoprolol, lisinopril, atorvastatin, baby aspirin, Brilinta. Following his PCI he had an episode of nonsustained V. tach on the monitor felt to be likely secondary to reperfusion. He was maintained on telemetry overnight for 1 more night to watch for further dysrhythmias. He had no further episodes remained completely asymptomatic. He was discharged home on the medications as mentioned above. He will start cardiac rehab and follow-up with cardiology in 1 week. Please follow-up with your PCP as well in 2 weeks. Patient discharged home in stable condition. Return to work as directed by cardiology. This patient was seen by Fermin Thomas PA-C under the supervision of Doctor Noe. [] - Physical Exam General: Alert, Oriented x3, Cooperative HEENT: Atraumatic, PERRLA, EOMI, Normocephalic Neck: Supple, No JVD, Negative Carotid Bruits Lungs: Clear to auscultation, Normal air movement Cardiovascular: Regular rate, No murmurs Abdomen: Bowel Sounds Present, Soft, Non Tender Extremities: No edema, Capillary Refill Less than 3 Seconds Skin: No rashes, No breakdown Musculoskeletal: No Tenderness to Palpation of Joints or Extremities Neurological: Cranial nerves II-XII grossly intact Psych/Mental Status: Normal Affect, Appropriate, Alert and oriented to time, place, person, mood and affect Vital Signs Temp Pulse Resp BP Pulse Ox 98.9 F 70 14 133/78 H 96 06/20/18 14:18 06/20/18 14:18 06/20/18 14:18 06/20/18 14:18 06/20/18 14:18 Oxygen Flow Rate (L/min) 2 Oxygen Delivery Method Room Air Weight: 173 lb 4.533 oz Body Mass Index (BMI) 25.1 Intake and Output for Last 24 Hours 06/18/18 06/19/18 06/20/18 23:59 23:59 23:59 Intake Total 1291 / 1291 940 / 940 650 / 650 Output Total 1625 / 1625 400 / 400 Balance -334 / -334 540 / 540 650 / 650 Laboratory Tests Past 24 Hrs 06/19/18 06/20/18 14:30 05:30 Sodium 139 Potassium 4.3 Chloride 106 Carbon Dioxide 27.0 Anion Gap 6 BUN 13 Creatinine 1.06 Estim Creat Clear Calc 82.26 Est GFR (MDRD) Af Amer 94 Est GFR (MDRD) Non-Af 77 BUN/Creatinine Ratio 12.3 Glucose 92 Calcium 8.6 Troponin I 8.260 H* Discharge Diet: Low fat/ Low Cholesterol, 2000 mg Sodium Diet Discharge Activity: Return to Normal Activity, - - No return to work until cleared per cardiology Home Medications: Medications to take at Discharge Aspirin E.C. [Ecotrin] 81 mg PO DAILY@0800 tablet 06/20/18 Atorvastatin Calcium [Lipitor] 80 mg PO QHS #30 tablet 06/20/18 Lisinopril [Zestril] 2.5 mg PO DAILY #30 tablet 06/20/18 Metoprolol Tartrate [Lopressor (beta madonna)] 12.5 mg PO BID #30 tablet 06/20/18 Nitroglycerin [Nitrostat] 0.4 mg SUBLINGUAL Q5M PRN #5 tablet 06/20/18 Ticagrelor [Brilinta] 90 mg PO BID #60 tablet 06/20/18 Following Prescrptions Were Given to Patient: Atorvastatin Calcium [Lipitor] 80 mg PO QHS #30 tablet Lisinopril [Zestril] 2.5 mg PO DAILY #30 tablet Metoprolol Tartrate [Lopressor (beta madonna)] 12.5 mg PO BID #30 tablet Nitroglycerin [Nitrostat] 0.4 mg SUBLINGUAL Q5M PRN #5 tablet PRN Reason: Cardiac/Chest Pain Ticagrelor [Brilinta] 90 mg PO BID #60 tablet Primary Care Physician: Care Physician,No Primary [Primary Care Provider] - Please follow up with your Primary Care Physician in: 2 weeks Please Follow Up With: Ralph Reeder MD When: 1-2 weeks Please Follow Up With: Cardiac Rehab When: as directed Disposition: Home Minutes spent on discharge:: 35 Patient Condition:: Stable Medical Necessity - Tobacco Use Smoking Status: Current some day smoker Tobacco Use: Cigarettes Meaningful Use Info Meaningful Use Diagnoses (Choose all that apply): AMI - AMI Aspirin given w/in 24hrs of arrival?: Yes ASA at discharge?: Yes Statins at discharge?: Yes Bi/ARB at discharge?: Yes Beta Madonna at discharge?: Yes Done w/ Acute SD measure.: Yes <Rupert Noe - Last Filed: 06/20/18 15:13> Discharge Date and Diagnosis - Secondary Discharge Diagnosis Chronic Problems HTN (hypertension) (Chronic) Hospital Course and Treatment Summary of Care Provided: The patient is a 53 year old M [] - Physical Exam Vital Signs Temp Pulse Resp BP Pulse Ox 98.9 F 70 14 133/78 H 96 06/20/18 14:18 06/20/18 14:18 06/20/18 14:18 06/20/18 14:18 06/20/18 14:18 Oxygen Flow Rate (L/min) 2 Oxygen Delivery Method Room Air Weight: 173 lb 4.533 oz Body Mass Index (BMI) 25.1 Intake and Output for Last 24 Hours 06/18/18 06/19/18 06/20/18 23:59 23:59 23:59 Intake Total 1291 / 1291 940 / 940 650 / 650 Output Total 1625 / 1625 400 / 400 Balance -334 / -334 540 / 540 650 / 650 Laboratory Tests Past 24 Hrs 06/19/18 06/20/18 14:30 05:30 Sodium 139 Potassium 4.3 Chloride 106 Carbon Dioxide 27.0 Anion Gap 6 BUN 13 Creatinine 1.06 Estim Creat Clear Calc 82.26 Est GFR (MDRD) Af Amer 94 Est GFR (MDRD) Non-Af 77 BUN/Creatinine Ratio 12.3 Glucose 92 Calcium 8.6 Troponin I 8.260 H* Code Visit Addendum: Dr. Noe I personally examined the patient and reviewed the chart. I agree with the above. 53-year-old male with no significant past medical history except for history of smoking presented to the emergency room with complaints of chest pain. Found to have T wave inversions on EKG and a rising troponin. Is taken to the cardiac Supervisor Maintenance And Custodians and had a mid PDA drug-eluting stent placed. On dual antiplatelet therapy and was admitted to the CVICU after the procedure. Overnight that night he was found to have episodes of nonsustained V. tach. He was transferred to the PCU for another night of my entering on telemetry and did not have any events that night. That is V. tach was secondary due to reperfusion after PCI. Since he was asymptomatic he was discharged home with cardiology follow-up with aspirin and Brilinta. Speak to him extensively about the necessity of staying on both Brilinta and aspirin. Inpatient E&M: 48639 Disch Hosp
--- NOTE | 2018-06-20 14:38 | DS.PCM_ITS ---
<Fermin Thomas - Last Filed: 06/20/18 14:35> Discharge Date and Diagnosis Date of Admission: 06/18/18 Date of Discharge: 06/20/18 - Primary Discharge Diagnosis Active and Suspected Problems Non-ST elevation [place] (NSTEMI) (Acute) - Secondary Discharge Diagnosis Chronic Problems HTN (hypertension) (Chronic) Hospital Course and Treatment Imaging Results: Echo: Interpretation Summary Segmental dysfunction with preserved ejection fraction (see wall motion). The estimated ejection fraction is 55 %. Mild (1+) mitral valve insufficiency. Mild tricuspid valve insufficiency. Trivial aortic valve insufficiency. Trivial pulmonic valve insufficiency. Right ventricular systolic pressure estimated to be 23 mmHg. No evidence for diastolic dysfunction. RAD/Chest 1 View (Portable) IMPRESSION: No evidence for acute cardiopulmonary pathology. Consults: Cardiology - Lilli/Rei Operations: None Procedures: Cardiac catheterization Summary of Care Provided: Hospital Course: The patient is a 53 year old M with a hx of smoking only not on any medications at home who presents to the emergency room with complaints of chest pain. He described it is excruciating constant persistent substernal nonradiating chest pain that started several hours before admission. He had some lightheadedness this associated with. He was found to have an elevated troponin in the emerge C room and nonspecific EKG changes. He was felt to have a non-STEMI and cardiology was consulted, he was admitted to the PCU on cardiac telemetry. He was taken to the Special Effects Designer and underwent successful PCI of the mid PDA with drug- eluting stent. He was placed in the ICU following intervention. He was started on metoprolol, lisinopril, atorvastatin, baby aspirin, Brilinta. Following his PCI he had an episode of nonsustained V. tach on the monitor felt to be likely secondary to reperfusion. He was maintained on telemetry overnight for 1 more night to watch for further dysrhythmias. He had no further episodes remained completely asymptomatic. He was discharged home on the medications as mentioned above. He will start cardiac rehab and follow-up with cardiology in 1 week. Please follow-up with your PCP as well in 2 weeks. Patient discharged home in stable condition. Return to work as directed by cardiology. This patient was seen by Fermin Thomas PA-C under the supervision of Doctor Noe. [] - Physical Exam General: Alert, Oriented x3, Cooperative HEENT: Atraumatic, PERRLA, EOMI, Normocephalic Neck: Supple, No JVD, Negative Carotid Bruits Lungs: Clear to auscultation, Normal air movement Cardiovascular: Regular rate, No murmurs Abdomen: Bowel Sounds Present, Soft, Non Tender Extremities: No edema, Capillary Refill Less than 3 Seconds Skin: No rashes, No breakdown Musculoskeletal: No Tenderness to Palpation of Joints or Extremities Neurological: Cranial nerves II-XII grossly intact Psych/Mental Status: Normal Affect, Appropriate, Alert and oriented to time, place, person, mood and affect Vital Signs Temp Pulse Resp BP Pulse Ox 98.9 F 70 14 133/78 H 96 06/20/18 14:18 06/20/18 14:18 06/20/18 14:18 06/20/18 14:18 06/20/18 14:18 Oxygen Flow Rate (L/min) 2 Oxygen Delivery Method Room Air Weight: 173 lb 4.533 oz Body Mass Index (BMI) 25.1 Intake and Output for Last 24 Hours 06/18/18 06/19/18 06/20/18 23:59 23:59 23:59 Intake Total 1291 / 1291 940 / 940 650 / 650 Output Total 1625 / 1625 400 / 400 Balance -334 / -334 540 / 540 650 / 650 Laboratory Tests Past 24 Hrs 06/19/18 06/20/18 14:30 05:30 Sodium 139 Potassium 4.3 Chloride 106 Carbon Dioxide 27.0 Anion Gap 6 BUN 13 Creatinine 1.06 Estim Creat Clear Calc 82.26 Est GFR (MDRD) Af Amer 94 Est GFR (MDRD) Non-Af 77 BUN/Creatinine Ratio 12.3 Glucose 92 Calcium 8.6 Troponin I 8.260 H* Discharge Diet: Low fat/ Low Cholesterol, 2000 mg Sodium Diet Discharge Activity: Return to Normal Activity, - - No return to work until cleared per cardiology Home Medications: Medications to take at Discharge Aspirin E.C. [Ecotrin] 81 mg PO DAILY@0800 tablet 06/20/18 Atorvastatin Calcium [Lipitor] 80 mg PO QHS #30 tablet 06/20/18 Lisinopril [Zestril] 2.5 mg PO DAILY #30 tablet 06/20/18 Metoprolol Tartrate [Lopressor (beta madonna)] 12.5 mg PO BID #30 tablet 06/20/18 Nitroglycerin [Nitrostat] 0.4 mg SUBLINGUAL Q5M PRN #5 tablet 06/20/18 Ticagrelor [Brilinta] 90 mg PO BID #60 tablet 06/20/18 Following Prescrptions Were Given to Patient: Atorvastatin Calcium [Lipitor] 80 mg PO QHS #30 tablet Lisinopril [Zestril] 2.5 mg PO DAILY #30 tablet Metoprolol Tartrate [Lopressor (beta madonna)] 12.5 mg PO BID #30 tablet Nitroglycerin [Nitrostat] 0.4 mg SUBLINGUAL Q5M PRN #5 tablet PRN Reason: Cardiac/Chest Pain Ticagrelor [Brilinta] 90 mg PO BID #60 tablet Primary Care Physician: Care Physician,No Primary [Primary Care Provider] - Please follow up with your Primary Care Physician in: 2 weeks Please Follow Up With: Ralph Reeder MD When: 1-2 weeks Please Follow Up With: Cardiac Rehab When: as directed Disposition: Home Minutes spent on discharge:: 35 Patient Condition:: Stable Medical Necessity - Tobacco Use Smoking Status: Current some day smoker Tobacco Use: Cigarettes Meaningful Use Info Meaningful Use Diagnoses (Choose all that apply): AMI - AMI Aspirin given w/in 24hrs of arrival?: Yes ASA at discharge?: Yes Statins at discharge?: Yes Bi/ARB at discharge?: Yes Beta Madonna at discharge?: Yes Done w/ Acute NH measure.: Yes <Rupert Noe - Last Filed: 06/20/18 15:13> Discharge Date and Diagnosis - Secondary Discharge Diagnosis Chronic Problems HTN (hypertension) (Chronic) Hospital Course and Treatment Summary of Care Provided: The patient is a 53 year old M [] - Physical Exam Vital Signs Temp Pulse Resp BP Pulse Ox 98.9 F 70 14 133/78 H 96 06/20/18 14:18 06/20/18 14:18 06/20/18 14:18 06/20/18 14:18 06/20/18 14:18 Oxygen Flow Rate (L/min) 2 Oxygen Delivery Method Room Air Weight: 173 lb 4.533 oz Body Mass Index (BMI) 25.1 Intake and Output for Last 24 Hours 06/18/18 06/19/18 06/20/18 23:59 23:59 23:59 Intake Total 1291 / 1291 940 / 940 650 / 650 Output Total 1625 / 1625 400 / 400 Balance -334 / -334 540 / 540 650 / 650 Laboratory Tests Past 24 Hrs 06/19/18 06/20/18 14:30 05:30 Sodium 139 Potassium 4.3 Chloride 106 Carbon Dioxide 27.0 Anion Gap 6 BUN 13 Creatinine 1.06 Estim Creat Clear Calc 82.26 Est GFR (MDRD) Af Amer 94 Est GFR (MDRD) Non-Af 77 BUN/Creatinine Ratio 12.3 Glucose 92 Calcium 8.6 Troponin I 8.260 H* Code Visit Addendum: Dr. Noe I personally examined the patient and reviewed the chart. I agree with the above. 53-year-old male with no significant past medical history except for history of smoking presented to the emergency room with complaints of chest pain. Found to have T wave inversions on EKG and a rising troponin. Is taken to the cardiac Special Effects Designer and had a mid PDA drug-eluting stent placed. On dual antiplatelet therapy and was admitted to the CVICU after the procedure. Overnight that night he was found to have episodes of nonsustained V. tach. He was transferred to the PCU for another night of my entering on telemetry and did not have any events that night. That is V. tach was secondary due to reperfusion after PCI. Since he was asymptomatic he was discharged home with cardiology follow-up with aspirin and Brilinta. Speak to him extensively about the necessity of staying on both Brilinta and aspirin. Inpatient E&M: 33686 Disch Hosp
== END 2018-06-20 14:52 | disposition home or self-care (01) | DRG 247 ==
LOC: ED 01:56 → PCU 04:13 → ICU 10:43 → PCU 06-19 10:08
PROVIDERS: Internal Medicine Cardiovascular Disease; Admitting Provider Hospitalist; Emergency Provider Emergency Medicine; Visit Provider Family Medicine
DX: I21.4 Non-ST elevation (NSTEMI) myocardial infarction (principal); I47.2 Ventricular tachycardia; F17.210 Nicotine dependence, cigarettes, uncomplicated; Z90.5 Acquired absence of kidney; I25.119 Atherosclerotic heart disease of native coronary artery with unspecified angina pectoris
CPT/HCPCS: 36415; 71045; 80048; 80061; 84484; 85025; 85347; 85379; 85610; 85730; 92928; 93005; 93306; 93458; 99152; 99153; 99284; 99406; J7030; Q9967; A4216; C1725; C1769; C1874; C1887; C1894; C9600; J2405

== ENCOUNTER → 2019-10-18 | Outpatient (CLI) | payer OTHER, SELFPAY ==
[2019-07-03 14:23] VITALS: BMI 24.1
[2019-10-18 10:09] LABS: AST(SGOT) 23 U/L (15-37); Alanine Aminotransfer ALT/SGPT 28 U/L (16-61); Albumin, Serum 3.6 g/dL (3.2-5.0); Alkaline Phosphatase 65 U/L (45-117); Bilirubin, Direct 0.16 mg/dL (0.00-0.30); Cholesterol 96 mg/dL (200); Globulin 3.7 g/dL (2.2-4.2); High Density Lipoprotein 41 mg/dL; Protein, Total 7.3 g/dL (6.4-8.2); Triglycerides 71 mg/dL; Very Low Density Lipoprotein 14 mg/dL (5-40)
== END | disposition home or self-care (01) ==
PROVIDERS: Referring Provider Internal Medicine Cardiovascular Disease; Visit Provider Internal Medicine Cardiovascular Disease
DX: E78.00 Pure hypercholesterolemia, unspecified (principal)
CPT/HCPCS: 36415; 80061; 80076

== ENCOUNTER → 2020-09-18 11:03 | Outpatient (CLI) | payer OTHER, SELFPAY ==
[2020-09-09 15:33] VITALS: BMI 26.2
[2020-09-18 12:08] LABS: AST(SGOT) 23 U/L (15-37); Alanine Aminotransfer ALT/SGPT 31 U/L (16-61); Albumin, Serum 3.9 g/dL (3.2-5.0); Alkaline Phosphatase 82 U/L (45-117); Bilirubin, Direct 0.14 mg/dL (0.00-0.30); Cholesterol 123 mg/dL (200); Globulin 3.8 g/dL (2.2-4.2); High Density Lipoprotein 39 mg/dL; Protein, Total 7.7 g/dL (6.4-8.2); Triglycerides 88 mg/dL; Very Low Density Lipoprotein 18 mg/dL (5-40)
== END ==
PROVIDERS: Referring Provider Internal Medicine Cardiovascular Disease; Visit Provider Internal Medicine Cardiovascular Disease
DX: E78.00 Pure hypercholesterolemia, unspecified (principal)
CPT/HCPCS: 36415; 80061; 80076

== ENCOUNTER → 2021-06-22 09:50 | Outpatient (CLI) | payer OTHER, SELFPAY ==
[2021-06-22 11:13] LABS: AST(SGOT) 23 U/L (15-37); Alanine Aminotransfer ALT/SGPT 45 U/L (16-61); Albumin, Serum 3.5 g/dL (3.2-5.0); Alkaline Phosphatase 84 U/L (45-117); Anion Gap 10 (5-15); BUN 13 mg/dL (7-18); BUN/Creat Ratio 12.3 RATIO (10-20); Bilirubin, Direct 0.15 mg/dL (0.00-0.30); Chloride 106 mmol/L (98-107); Cholesterol 114 mg/dL (200); Creatinine, Serum 1.06 mg/dL (0.70-1.30); EST Glomerular Filtration Rate 77 mL/min (>60); Est Glom Filt Rate - Afr Amer 93 mL/min (>60); Globulin 3.9 g/dL (2.2-4.2); Glucose 109 mg/dL (74-106); High Density Lipoprotein 36 mg/dL; Protein, Total 7.4 g/dL (6.4-8.2); Sodium Level 141 mmol/L (136-145); Triglycerides 188 mg/dL; Very Low Density Lipoprotein 38 mg/dL (5-40)
== END ==
PROVIDERS: Referring Provider Nurse Practitioner Gerontology; Visit Provider Nurse Practitioner Gerontology
DX: E78.2 Mixed hyperlipidemia (principal); I10 Essential (primary) hypertension
CPT/HCPCS: 36415; 80048; 80061; 80076

== ENCOUNTER 2021-11-30 12:17 | Outpatient (CLI) | payer OTHER, SELFPAY ==
[2021-11-30 14:08] LABS: AST(SGOT) 25 U/L (15-37); Alanine Aminotransfer ALT/SGPT 34 U/L (16-61); Albumin, Serum 3.7 g/dL (3.2-5.0); Alkaline Phosphatase 81 U/L (45-117); Bilirubin, Direct 0.08 mg/dL (0.00-0.30); Cholesterol 130 mg/dL (200); Globulin 3.7 g/dL (2.2-4.2); High Density Lipoprotein 36 mg/dL; Protein, Total 7.4 g/dL (6.4-8.2); Triglycerides 192 mg/dL; Very Low Density Lipoprotein 38 mg/dL (5-40)
== END 2021-11-30 23:59 | disposition home or self-care (01) ==
LOC: LAB 12:19
PROVIDERS: Referring Provider Nurse Practitioner Family; Visit Provider Nurse Practitioner Family
DX: E78.00 Pure hypercholesterolemia, unspecified (principal); E78.2 Mixed hyperlipidemia
CPT/HCPCS: 36415; 80061; 80076

== ENCOUNTER → 2022-06-07 | Outpatient (CLI) | payer OTHER, SELFPAY ==
[2022-06-07 11:35] LABS: AST(SGOT) 22 U/L (15-37); Alanine Aminotransfer ALT/SGPT 31 U/L (16-61); Albumin, Serum 3.6 g/dL (3.2-5.0); Alkaline Phosphatase 82 U/L (45-117); Bilirubin, Direct 0.16 mg/dL (0.00-0.30); Cholesterol 111 mg/dL (200); Globulin 4.1 g/dL (2.2-4.2); High Density Lipoprotein 39 mg/dL; Protein, Total 7.7 g/dL (6.4-8.2); Triglycerides 100 mg/dL; Very Low Density Lipoprotein 20 mg/dL (5-40)
== END | disposition home or self-care (01) ==
PROVIDERS: Referring Provider Internal Medicine Cardiovascular Disease; Visit Provider Internal Medicine Cardiovascular Disease
DX: E78.00 Pure hypercholesterolemia, unspecified (principal)
CPT/HCPCS: 36415; 80061; 80076

== ENCOUNTER → 2023-06-05 | Outpatient (CLI) | payer OTHER, SELFPAY ==
[2023-06-05 12:06] LABS: AST(SGOT) 23 U/L (15-37); Alanine Aminotransfer ALT/SGPT 35 U/L (16-61); Albumin, Serum 3.8 g/dL (3.2-5.0); Alkaline Phosphatase 78 U/L (45-117); Bilirubin, Direct 0.17 mg/dL (0.00-0.30); Cholesterol 119 mg/dL (200); Globulin 3.6 g/dL (2.2-4.2); High Density Lipoprotein 39 mg/dL; Protein, Total 7.4 g/dL (6.4-8.2); Triglycerides 99 mg/dL; Very Low Density Lipoprotein 20 mg/dL (5-40)
== END | disposition home or self-care (01) ==
LOC: LAB 11:08
PROVIDERS: Referring Provider Nurse Practitioner Family; Visit Provider Nurse Practitioner Family
DX: E78.2 Mixed hyperlipidemia (principal)
CPT/HCPCS: 36415; 80061; 80076

== ENCOUNTER → 2024-03-01 | Outpatient (CLI) | payer OTHER, SELFPAY ==
--- NOTE | 2024-03-01 11:33 | STRESSREP_ITS ---
Stress Test Report Exercise myocardial perfusion stress test. 58-year-old man with a history of coronary disease Stress protocol: Resting EKG demonstrates sinus bradycardia with a rate of 45 bpm resting blood pressure is 108/66 mmHg. The patient exercised according to the regular Julien protocol for a total duration of 8 minutes and 30 seconds attaining a maximum heart rate of 127 bpm which was 78% of maximum predicted heart rate; the maximum workload was 7 metabolic equivalents. At rest there were no ST or T wave changes noted to suggest ischemia and at peak exercise upsloping ST changes only were noted which did not meet the criteria for ischemia. Frequent premature ventricular complexes some in the pattern of bigeminy and couplets are noted. Mild chest pressure was noted the test was terminated due to the target heart rate being achieved/fatigue. The peak blood pressure was 160/70 mmHg. Rate- pressure product was 18,000. Myocardial perfusion protocol. 14 mCi of technetium 99m sestamibi was injected at rest. The patient exercised according to regular Julien protocol for total duration of 8 minutes and 30 seconds and at peak exercise 45 mCi of technetium 99m sestamibi was injected stress images were obtained stress and rest images were reconstructed in comparing the short axis vertical long and horizontal long axis. Gated images were also obtained. Perfusion SPECT analysis: Review of the stress images demonstrate normal uptake of tracer noted in all areas of the myocardium. The resting images similarly demonstrate normal uptake of tracer noted in all areas of the myocardium. No areas of reversibility are noted to suggest ischemia no previous infarct was noted. Gated SPECT analysis: The gated ejection fraction is 59%. Conclusion: Normal exercise myocardial perfusion stress test at a moderate workload Preserved ejection fraction. Frequent premature ventricular complexes noted during exercise.
== END | disposition home or self-care (01) ==
PROVIDERS: Referring Provider Internal Medicine Cardiovascular Disease; Visit Provider Internal Medicine Cardiovascular Disease
DX: Z95.5 Presence of coronary angioplasty implant and graft (principal); I25.10 Atherosclerotic heart disease of native coronary artery without angina pectoris
CPT/HCPCS: 78452; 93017; A9500; A4216

== ENCOUNTER 2024-03-05 03:31 | Emergency (ER) | payer OTHER, SELFPAY ==
[2024-03-05 03:31] VITALS: BP 148/78; PULSE 59; RESP 18; TEMP 36.7; O2SAT 98; BMI 28.7
--- NOTE | 2024-03-05 03:38 | RAD_ITS ---
INDICATION: chest pain EXAMINATION/TECHNIQUE: X-RAY - XR Chest 1 View COMPARISON: Prior study dated: 06/18/2018 FINDINGS: LINES/DEVICES: Cardiac leads overlie the chest. LUNGS: The lungs are well expanded. No consolidation, edema or effusion. No pneumothorax. MEDIASTINUM AND CARDIOVASCULAR STRUCTURES: Cardiac silhouette not enlarged. Central airways and mediastinal contour are unremarkable. BONES AND SOFT TISSUES: No acute abnormality. RAD/Chest 1 View (Portable) IMPRESSION: No acute pulmonary finding. Electronically Signed: Derrick Louie MD at 4:06 EDT ,
--- NOTE | 2024-03-05 03:38 | EKG12_ITS ---
Test Reason : CP Blood Pressure : / mmHG Vent. Rate : 060 BPM Atrial Rate : 060 BPM P-R Int : 180 ms QRS Dur : 090 ms QT Int : 400 ms P-R-T Axes : 073 014 045 degrees QTc Int : 400 ms Normal sinus rhythm Normal ECG Confirmed by Fernando Collins [id number]), non linear editor LORRIE LÓPEZ ([id number]) on 03/06/2024 9:43:02 AM Referred By: TAE Confirmed By:Fernando Collins
[2024-03-05 03:45] LABS: Absolute Lymphocyte Count 3.44 X10^3/uL (0.83-4.51); Absolute Neutrophil Count 9.6 X10^3/uL (2.0-7.7); Basophil# 0.11 X10^3/uL; Basophil% 0.7 % (0-1); Eosinophil# 0.42 X10^3/uL; Eosinophils% 2.8 % (0-5); Hematocrit 48.9 % (40-54); Hemoglobin 16.2 g/dL (13.0-16.5); Lymphocyte # 3.44 X10^3/ul (0.83-4.51); Lymphocyte % 23.3 % (19-41); Mean Corp Hgb Conc 33.1 g/dL (32-36); Mean Corpuscular Hgb 30.1 pg (27.0-32.0); Mean Corpuscular Volume 90.7 fL (80-94); Mean Platelet Vol. 11.8 fl (6.2-12.0); Monocyte# 1.15 X10^3/uL; Monocyte% 7.8 % (0-10); NRBC Flagged by Analyzer 0 % (0-5); Neutrophil # 9.57 X10^3/uL (2.7-7.7); Neutrophil % 64.9 % (47-70); Platelet Count 215 K/mm3 (150-450); RBC Distribution Width CV 12.7 % (11.6-14.6); RBC Distribution Width SD 41.7 fl (35.1-43.9); Red Blood Count 5.39 M/mm3 (4.6-6.2); White Blood Count 14.8 K/mm3 (4.4-11.0)
[2024-03-05 04:31] VITALS: BP 122/70; PULSE 57; RESP 18; O2SAT 95
[2024-03-05 04:43] LABS: Anion Gap 7 (5-15); BUN 12 mg/dL (7-18); BUN/Creat Ratio 10.3 RATIO (10-20); Calcium,Total 8.6 mg/dL (8.5-10.1); Chloride 109 mmol/L (98-107); Creatinine, Serum 1.16 mg/dL (0.70-1.30); EST Glomerular Filtration Rate 68 mL/min (>60); Est Glom Filt Rate - Afr Amer 83 mL/min (>60); Estimated Creatinine Clearance 80.09 ml/min; Glucose 125 mg/dL (74-106); Potassium 3.5 mmol/L (3.5-5.1); Sodium Level 142 mmol/L (136-145); Troponin-I HS (w/2H Reflex) 6 pg/mL (3.0-78.0)
[2024-03-05 05:00] VITALS: BP 129/73; PULSE 55; RESP 20; O2SAT 95
[2024-03-05 05:42] LABS: Reflex Troponin-HS? (from REC) Y
[2024-03-05 06:00] VITALS: BP 131/78; PULSE 53; RESP 19; O2SAT 94
--- NOTE | 2024-03-05 06:12 | EX.ED.DYSGE1 ---
HPI History of Present Illness Chief Complaint: Chest Pain Narrative Narrative: Patient is a 58-year-old male with past medical history of hypertension hyperlipidemia and coronary artery disease with stents placed in 2018. He recently saw cardiology and had a stress test on March 01 which showed no active signs of ischemia. He states that this morning he woke up from sleep to use the restroom and after doing so he felt some midsternal chest discomfort. He states there was no radiation of the pain and he denies any nausea vomiting diaphoresis or shortness of breath associated with it. Because of his previous history of CAD he does have home nitro and when the pain began he took a pill. He states at the same time he called 911 and by time EMS arrived his pain had resolved. However because of his history of CAD and development of chest pain he was concerned this was cardiac in nature and presents for evaluation [facility] Medical History (Updated 03/05/24 @ 06:[address] Baldemar Hopper DO) Presence of stent in coronary artery (~06/18/18) Old myocardial infarction Nonsustained ventricular tachycardia Nicotine dependence, cigarettes, uncomplicated Atherosclerosis of [place] coronary artery of [place] heart without angina pectoris Essential (primary) hypertension Non-ST elevation NE (NSTEMI) Home Medications ?Medication ?Instructions ?Recorded ?Last Taken ?Type aspirin 81 mg tablet,delayed 81 mg PO DAILY@0800 06/20/18 Unknown Rx release atorvastatin 80 mg tablet 80 mg PO QHS #90 tabs 10/10/23 Unknown Rx lisinopril 2.5 mg tablet 2.5 mg PO DAILY #90 tabs 10/10/23 Unknown Rx metoprolol tartrate 25 mg tablet 12.5 mg (1/2 x 25 mg) PO BID #90 10/10/23 Unknown Rx tabs nitroglycerin 0.4 mg sublingual 0.4 mg sublingual Q5M PRN 10/10/23 Unknown Rx tablet Cardiac/Chest Pain #25 tabs Allergy/AdvReac Type Severity Reaction Status Date / Time No Known Allergies Allergy Verified 03/05/24 03:36 Family History Father CAD (coronary artery disease) Mother Diabetes Brother Diabetes Sister CAD (coronary artery disease) CABG Surgical History Presence of coronary angioplasty implant and graft History of kidney surgery Social History Smoking Status: Current every day smoker tobacco type: cigarettes alcohol intake: never substance use type: does not use caffeine: Yes Type: carbonated beverages Number of servings: 1 and coffee Number of servings: 1 ROS ROS ED Constitutional Constitutional ED: Denies chills or fever(s) Eyes Eyes: Denies change in vision ENT ENT ED: Denies sore throat Cardiovascular Cardiovascular: Reports chest pain; Denies palpitations or racing heartbeat Respiratory/Chest Respiratory/Chest: Denies cough or dyspnea Gastrointestinal Gastrointestinal: Denies abdominal pain, diarrhea, nausea or vomiting Genitourinary Genitourinary ED: Denies dysuria Musculoskeletal Musculoskeletal: Denies back pain or myalgias Integumentary Denies rash Neurologic Neurologic: Denies headache(s) Hematologic/Lymphatic Hematologic/Lymphatic: Denies easy bleeding or easy bruising EXAM Physical Exam Const Vital Signs: 03/05/24 03:31 03/05/24 03:36 03/05/24 03:38 Temperature 98.1 F Temperature Source Oral Pulse Rate 59 L Respiratory Rate 18 Respiratory Effort Normal Blood Pressure 148/78 H Blood Pressure Mean 101 Pulse Ox 98 Oxygen Delivery Method Room Air Room Air 03/05/24 04:31 03/05/24 05:00 03/05/24 06:00 Temperature Temperature Source Pulse Rate 57 L 55 L 53 L Respiratory Rate 18 20 H 19 H Respiratory Effort Blood Pressure 122/70 H 129/73 H 131/78 H Blood Pressure Mean 87 91 95 Pulse Ox 95 95 94 Oxygen Delivery Method Room Air Room Air Room Air Positive well nourished and well developed General Appearance ED: well developed; Negative for pallor HEENT HEENT Narrative: Normocephalic atraumatic Eyes PERRL and EOMs intact bilaterally General Eye ED: Negative for pale conjunctiva or scleral icterus Neck supple and no JVD Chest Wall palpation of chest normal Chest Narrative: No bony deformity or crepitance of the chest wall noted Resp normal respiratory effort and clear to auscultation bilaterally Cardio regular rate and regular rhythm Rate: other Other Details: Heart is regular rate and rhythm without murmurs rubs or gallops Radial and carotid pulses equal and symmetric GI normal to inspection, nondistended, normoactive bowel sounds, non-tender, non-distended and no masses GI Narrative: No voluntary guarding or rigidity or pulsatile mass Auscultation: normoactive bowel sounds Palpation: soft Extremity normal to inspection Extremity Narrative: No asymmetric edema no pitting edema negative Homans' sign bilaterally Neuro oriented x3, CN's II-XII intact bilaterally and no sensory deficits noted Sensorium / Orientation: alert Motor Exam: strength 5/5 throughout Psych mental status grossly normal Skin no rashes or lesions noted and no wounds General Skin Exam: Negative for jaundice or pallor MDM MDM MDM Narrative Medical decision making narrative: Patient arrived to ER with stable vitals and reported resolution of his chest pain prior to arrival in the ER. With his known history of CAD there is concern this could have been acute coronary syndrome versus cardiac dysrhythmia versus electrolyte abnormality versus acute kidney injury or lung pathology such as pneumonia or pneumothorax. Secondary to his basic blood work was obtained. Patient's initial troponin was 6 and his EKG showed sinus rhythm without ischemic changes going against acute coronary syndrome. The 2-hour delta troponin did not elevate and patient remained pain-free going against acute coronary syndrome. He was kept on the monitoring engineer and there was no abnormal cardiac rhythm during his stay either. Chest x-ray also revealed no lung pathology such as pneumonia or pneumothorax or pleural effusion. On reevaluation he is hemodynamically stable and remains chest pain-free. Therefore at this time with resolution of his pain prior to arrival and negative cardiac workup there is no need for further evaluation in the hospital and he can follow-up with his heart doctor on an outpatient basis History & Record Review Discussion w/independent historian: Patient Lab Data Attestation: I reviewed the patient's lab results. Labs: Laboratory Results - last 24 hr 03/05/24 03/05/24 03:37 05:48 WBC 14.8 H RBC 5.39 Hgb 16.2 Hct 48.9 MCV 90.7 MCH 30.1 MCHC 33.1 RDW Std Deviation 41.7 RDW Coeff of Cat 12.7 Plt Count 215 MPV 11.8 Immature Gran % (Auto) 0.500 Neut % (Auto) 64.9 Lymph % (Auto) 23.3 [place] % (Auto) 7.8 Eos % (Auto) 2.8 Baso % (Auto) 0.7 Absolute Neuts (auto) 9.6 H Absolute Lymphs (auto) 3.44 Nucleated RBC % 0 Sodium 142 Potassium 3.5 Chloride 109 H Carbon Dioxide 26.0 Anion Gap 7 BUN 12 Creatinine 1.16 Estim Creat Clear Calc 80.09 Est GFR (MDRD) Af Amer 83 Est GFR (MDRD) Non-Af 68 BUN/Creatinine Ratio 10.3 Glucose 125 H Calcium 8.6 Troponin I High Sens 6 6 Radiography Diagnostic Testing: Clinical Impression(s) from Imaging Studies Chest X-Ray 03/05/24 03:38 IMPRESSION: No acute pulmonary finding. Electronically Signed: Derrick Louie MD at 4:06 EDT , Chest x-ray as interpreted by the emergency medicine physician reveals no acute infiltrate pneumothorax or pleural effusion Discharge Plan Triage Chief Complaint: Chest Pain ED Provider: Baldemar Hopper Dx/Rx/DC Orders Clinical Impression: Nonspecific chest pain, Mixed hyperlipidemia, Essential (primary) hypertension, Presence of stent in coronary artery Instructions: ED Chest Pain, Uncertain Cause Prescriptions: No Action aspirin 81 MG tablet 81 mg PO DAILY@0800 0RF atorvastatin 80 mg tablet 80 mg PO QHS Qty: 90 3RF lisinopril 2.5 mg tablet 2.5 mg PO DAILY Qty: 90 3RF metoprolol tartrate 25 mg tablet 12.5 mg PO BID Qty: 90 3RF nitroglycerin 0.4 mg tablet, sublingual 0.4 mg Sublingual Q5M PRN (Reason: Cardiac/Chest Pain) Qty: 25 3RF Primary Care Provider: Care Physician,No Primary Referrals: Jose Juan Castorena MD [Med Staff - Active Staff] - Care Physician,No Primary [Primary Care Provider] - Activity Restrictions/Additional Instructions: Your workup today showed no signs of active heart damage. Continue your medication as directed by your boring machine operator horizontal and follow-up for repeat evaluation. Return to the ER should you have any further concerns Print Language: Lithuanian Disposition Disposition: Home, Self Care
[2024-03-05 06:19] LABS: Troponin-I HS 6 pg/mL (3.0-78.0)
[2024-03-05 06:26] VITALS: BP 120/73; PULSE 56; RESP 16; TEMP 36.6; O2SAT 96
== END 2024-03-05 06:28 | disposition home or self-care (01) ==
PROVIDERS: Emergency Provider Emergency Medicine; Visit Provider Emergency Medicine
DX: R07.89 Other chest pain (principal); I10 Essential (primary) hypertension; I25.10 Atherosclerotic heart disease of native coronary artery without angina pectoris; E78.2 Mixed hyperlipidemia; F17.210 Nicotine dependence, cigarettes, uncomplicated; Z95.5 Presence of coronary angioplasty implant and graft
CPT/HCPCS: 71045; 80048; 84484; 85025; 93005; 99284; A4216

== ENCOUNTER → 2025-02-10 | Outpatient (CLI) | payer OTHER, SELFPAY ==
[2025-02-10 09:09] LABS: Absolute Lymphocyte Count 2.64 X10^3/uL (0.83-4.51); Eosinophil# 0.44 X10^3/uL; Eosinophils% 4.3 % (0-5); Hematocrit 47.8 % (40-54); Hemoglobin 16.5 g/dL (13.0-16.5); Lymphocyte # 2.64 X10^3/ul (0.83-4.51); Lymphocyte % 25.9 % (19-41); Mean Corp Hgb Conc 34.5 g/dL (32-36); Mean Corpuscular Hgb 31.1 pg (27.0-32.0); Mean Platelet Vol. 12.2 fl (6.2-12.0); Monocyte# 0.97 X10^3/uL; Monocyte% 9.5 % (0-10); NRBC Flagged by Analyzer 0 % (0-5); Neutrophil # 6.02 X10^3/uL (2.7-7.7); Neutrophil % 58.9 % (47-70); Platelet Count 212 K/mm3 (150-450); RBC Distribution Width CV 12.4 % (11.6-14.6); RBC Distribution Width SD 40.8 fl (35.1-43.9); Red Blood Count 5.31 M/mm3 (4.6-6.2); White Blood Count 10.2 K/mm3 (4.4-11.0)
[2025-02-11 15:56] LABS: AST(SGOT) 29 U/L (<=37); Alanine Aminotransfer ALT/SGPT 17 U/L (<=46); Albumin, Serum 4.1 g/dL (3.4-4.8); Alkaline Phosphatase 88 U/L (40-129); Anion Gap 11 (5-15); BUN 18 mg/dL (4-19); BUN/Creat Ratio 14.2 RATIO (10-20); Bilirubin, Direct 0.16 mg/dL (0.00-0.30); Carbon Dioxide 24.2 mmol/L (21.0-32.0); Chloride 105 mmol/L (98-108); Cholesterol 113 mg/dL (<=200); Creatinine, Serum 1.25 mg/dL (0.70-1.20); EST Glomerular Filtration Rate 66 (>60); Globulin 2.5 g/dL (2.2-4.2); Glucose 177 mg/dL (70-99); High Density Lipoprotein 29 mg/dL; Low Density Lipoprotein Calc. 41 mg/dL; Protein, Total 6.6 g/dL (5.9-8.4); Sodium Level 140 mmol/L (133-145); Total Bilirubin 0.35 mg/dL (0.00-1.30); Triglycerides 217 mg/dL; Very Low Density Lipoprotein 43 mg/dL (5-40); cholesterol:hdl ratio screen 3.95
== END | disposition home or self-care (01) ==
LOC: LAB 08:27
PROVIDERS: Referring Provider Nurse Practitioner Family; Visit Provider Nurse Practitioner Family
DX: E78.2 Mixed hyperlipidemia (principal); I47.20 Ventricular tachycardia, unspecified; I25.10 Atherosclerotic heart disease of native coronary artery without angina pectoris; I10 Essential (primary) hypertension
CPT/HCPCS: 36415; 80048; 80061; 80076; 85025